=== PATIENT | male | born 1955 | race Caucasian/White ===

== ENCOUNTER → 2023-05-09 06:12 | Day surgery (SDC) | payer MEDICARE, SELFPAY | LOC: GI 06:12 | PROVIDERS: ATTENDING PHYSICIAN Internal Medicine Gastroenterology; FAMILY PHYSICIAN Family Medicine | DX: Z12.11 Encounter for screening for malignant neoplasm of colon (principal); Z86.010 Personal history of colon polyps; K64.8 Other hemorrhoids; K57.30 Diverticulosis of large intestine without perforation or abscess without bleeding | CPT/HCPCS: G0105 ==

== ENCOUNTER → 2023-05-26 07:18 | Outpatient (REF) | payer MEDICARE, SELFPAY ==
[2023-05-26 07:47] LABS: % Basophils 0.4 % (0-2); % Eosinophils 1.7 % (0-6); % Immature Granulocytes 0.4 % (0-0.5); % Lymphocytes 20.3 % (20.5-51.1); % Monocytes 8.4 % (1.7-9.3); % Neutrophils 68.8 % (42.2-75.2); Absolute Eosinophils 0.1 10^3/uL (0-0.7); Absolute Lymphocytes 1.6 10^3/uL (1.2-3.4); Absolute Monocytes 0.7 10^3/uL (0.1-0.6); Absolute Neutrophils 5.6 10^3/uL (1.4-6.5); Hematocrit 45.1 % (39.0-52.0); Hemoglobin 15.5 g/dL (13.0-18.0); Mean Corp Hgb Conc. 34.4 g/dL (33.0-37.0); Mean Corpuscular Hgb 31.4 pg (27.0-31.0); Mean Corpuscular Volume 91.5 fL (80.0-94.0); Mean Platelet Volume 10.5 fL (7.4-10.4); Nucleated Red Blood Cells % 0 % (-); Platelet Count 186 10^3/uL (130-400); Red Blood Cell Count 4.93 10^6/uL (4.70-6.10); Red Cell Dist. Width 13.9 % (11.5-14.5); White Blood Cell Count 8.1 10^3/uL (4.8-10.8)
[2023-05-26 08:24] LABS: Erythrocyte Sed Rate 4 mm/hour (0-20)
[2023-05-26 08:38] LABS: ALT (SGPT) 40 U/L (0-50); AST (SGOT) 38 U/L (17-59); Albumin 4.6 g/dl (3.5-5.0); Alkaline Phosphatase 95 U/L (38-126); Blood Urea Nitrogen 19 mg/dl (9-20); Calcium 9.3 mg/dl (8.4-10.2); Carbon Dioxide 26 mmol/L (22-30); Chloride 106 mmol/L (98-107); Glucose 102 mg/dl (70-99); Potassium 4.2 mmol/L (3.5-5.1); Sodium 138 mmol/L (135-145); Total Bilirubin 1.5 mg/dl (0.2-1.3); Total Protein 7.6 g/dl (6.3-8.2); eGFR > 60.00
== END ==
LOC: REG 07:18
PROVIDERS: ATTENDING PHYSICIAN Internal Medicine Rheumatology; FAMILY PHYSICIAN Family Medicine
DX: M05.79 Rheumatoid arthritis with rheumatoid factor of multiple sites without organ or systems involvement (principal); M81.0 Age-related osteoporosis without current pathological fracture; Z51.81 Encounter for therapeutic drug level monitoring
CPT/HCPCS: 36415; 80053; 85025; 85652; 86140

== ENCOUNTER → 2023-06-02 06:11 | Day surgery (SDC) | payer MEDICARE, SELFPAY | LOC: GI 06:11 | PROVIDERS: ATTENDING PHYSICIAN Internal Medicine Gastroenterology; FAMILY PHYSICIAN Family Medicine | DX: R12 Heartburn (principal); K44.9 Diaphragmatic hernia without obstruction or gangrene; K21.00 Gastro-esophageal reflux disease with esophagitis, without bleeding; K22.89 Other specified disease of esophagus; K31.89 Other diseases of stomach and duodenum | CPT/HCPCS: 43239; 88305; 88342 ==

== ENCOUNTER → 2023-07-31 06:51 | Outpatient (REF) | payer MEDICARE, SELFPAY ==
[2023-07-31 07:49] LABS: % Basophils 0.4 % (0-2); % Eosinophils 1.5 % (0-6); % Immature Granulocytes 0.5 % (0-0.5); % Lymphocytes 14.6 % (20.5-51.1); % Monocytes 6.8 % (1.7-9.3); % Neutrophils 76.2 % (42.2-75.2); Absolute Eosinophils 0.2 10^3/uL (0-0.7); Absolute Immature Granulocytes 0.1 10^3/uL (0-0.05); Absolute Lymphocytes 1.6 10^3/uL (1.2-3.4); Absolute Monocytes 0.8 10^3/uL (0.1-0.6); Absolute Neutrophils 8.4 10^3/uL (1.4-6.5); Hematocrit 46.3 % (39.0-52.0); Hemoglobin 15.7 g/dL (13.0-18.0); Mean Corp Hgb Conc. 33.9 g/dL (33.0-37.0); Mean Corpuscular Hgb 31.2 pg (27.0-31.0); Mean Corpuscular Volume 91.9 fL (80.0-94.0); Mean Platelet Volume 10.4 fL (7.4-10.4); Nucleated Red Blood Cells % 0 % (-); Platelet Count 197 10^3/uL (130-400); Red Blood Cell Count 5.04 10^6/uL (4.70-6.10); Red Cell Dist. Width 13.4 % (11.5-14.5); White Blood Cell Count 11.1 10^3/uL (4.8-10.8)
[2023-07-31 08:33] LABS: ALT (SGPT) 48 U/L (0-50); AST (SGOT) 36 U/L (17-59); Albumin 4.3 g/dl (3.5-5.0); Alkaline Phosphatase 87 U/L (38-126); Blood Urea Nitrogen 20 mg/dl (9-20); Calcium 9.6 mg/dl (8.4-10.2); Carbon Dioxide 27 mmol/L (22-30); Chloride 104 mmol/L (98-107); Glucose 107 mg/dl (70-99); HDL Cholesterol 50 mg/dl; LDL Cholesterol, Calculated 96 mg/dl; Potassium 4.3 mmol/L (3.5-5.1); Sodium 140 mmol/L (135-145); Total Bilirubin 0.6 mg/dl (0.2-1.3); Total Cholesterol 173 mg/dl (50-199); Total Protein 7.5 g/dl (6.3-8.2); Triglyceride 138 mg/dl (10-149); Very Low Density Lipoprotein 27 mg/dl (0-30); eGFR > 60.00
[2023-07-31 08:51] LABS: PSA, Total - Screen 1.87 ng/ml (0.0-4.0)
== END ==
LOC: REG 06:51
PROVIDERS: ATTENDING PHYSICIAN Family Medicine
DX: D72.829 Elevated white blood cell count, unspecified (principal); Z12.5 Encounter for screening for malignant neoplasm of prostate; E78.2 Mixed hyperlipidemia; R73.02 Impaired glucose tolerance (oral)
CPT/HCPCS: 36415; 80053; 80061; 85025; G0103

== ENCOUNTER → 2023-09-25 07:04 | Outpatient (REF) | payer MEDICARE, SELFPAY ==
[2023-09-25 08:15] LABS: % Basophils 0.4 % (0-2); % Eosinophils 1.5 % (0-6); % Immature Granulocytes 0.5 % (0-0.5); % Lymphocytes 15.6 % (20.5-51.1); % Monocytes 10.1 % (1.7-9.3); % Neutrophils 71.9 % (42.2-75.2); Absolute Eosinophils 0.1 10^3/uL (0-0.7); Absolute Immature Granulocytes 0.1 10^3/uL (0-0.05); Absolute Lymphocytes 1.5 10^3/uL (1.2-3.4); Absolute Neutrophils 6.9 10^3/uL (1.4-6.5); Hematocrit 47.1 % (39.0-52.0); Hemoglobin 15.8 g/dL (13.0-18.0); Mean Corp Hgb Conc. 33.5 g/dL (33.0-37.0); Mean Corpuscular Volume 89.5 fL (80.0-94.0); Mean Platelet Volume 10.9 fL (7.4-10.4); Nucleated Red Blood Cells % 0 % (-); Platelet Count 210 10^3/uL (130-400); Red Blood Cell Count 5.26 10^6/uL (4.70-6.10); Red Cell Dist. Width 13.7 % (11.5-14.5); White Blood Cell Count 9.6 10^3/uL (4.8-10.8)
[2023-09-25 09:14] LABS: Free T4 1.08 ng/dl (0.78-2.19)
[2023-09-25 09:28] LABS: TSH 1.48 uIU/ml (0.47-4.68)
== END ==
LOC: REG 07:04
PROVIDERS: ATTENDING PHYSICIAN Family Medicine; FAMILY PHYSICIAN Internal Medicine Rheumatology
DX: D72.829 Elevated white blood cell count, unspecified (principal); R53.83 Other fatigue
CPT/HCPCS: 36415; 84403; 84439; 84443; 85025

== ENCOUNTER → 2023-09-28 16:34 | Outpatient (REF) | payer MEDICARE, SELFPAY ==
[2023-09-28 17:00] LABS: % Basophils 0.5 % (0-2); % Eosinophils 1.3 % (0-6); % Immature Granulocytes 0.4 % (0-0.5); % Lymphocytes 16.8 % (20.5-51.1); % Monocytes 13.8 % (1.7-9.3); % Neutrophils 67.2 % (42.2-75.2); Absolute Eosinophils 0.1 10^3/uL (0-0.7); Absolute Lymphocytes 1.4 10^3/uL (1.2-3.4); Absolute Monocytes 1.2 10^3/uL (0.1-0.6); Absolute Neutrophils 5.7 10^3/uL (1.4-6.5); Hematocrit 44.7 % (39.0-52.0); Hemoglobin 15.4 g/dL (13.0-18.0); Mean Corp Hgb Conc. 34.5 g/dL (33.0-37.0); Mean Corpuscular Volume 90.1 fL (80.0-94.0); Mean Platelet Volume 10.4 fL (7.4-10.4); Nucleated Red Blood Cells % 0 % (-); Platelet Count 230 10^3/uL (130-400); Red Blood Cell Count 4.96 10^6/uL (4.70-6.10); White Blood Cell Count 8.5 10^3/uL (4.8-10.8)
[2023-09-28 17:15] LABS: ALT (SGPT) 45 U/L (0-50); AST (SGOT) 35 U/L (17-59); Albumin 4.3 g/dl (3.5-5.0); Alkaline Phosphatase 75 U/L (38-126); Blood Urea Nitrogen 22 mg/dl (9-20); Calcium 9.3 mg/dl (8.4-10.2); Carbon Dioxide 27 mmol/L (22-30); Chloride 104 mmol/L (98-107); Glucose 95 mg/dl (70-99); Potassium 4.3 mmol/L (3.5-5.1); Sodium 141 mmol/L (135-145); Total Bilirubin 0.7 mg/dl (0.2-1.3); Total Protein 7.3 g/dl (6.3-8.2); eGFR > 60.00
[2023-09-28 17:28] LABS: Erythrocyte Sed Rate 25 mm/hour (0-20)
[2023-09-29 10:58] LABS: Body Fluid Mononuclear 14.1 %; Body Fluid Polymorphonuclear 85.9 %; Body Fluid WBC 23980 /CUMM
[2023-09-29 11:12] LABS: Body Fluid Second Tech CF
== END ==
LOC: REG 16:34
PROVIDERS: ATTENDING PHYSICIAN Physician Assistant Surgical; FAMILY PHYSICIAN Family Medicine; REFERRING PHYSICIAN Internal Medicine Rheumatology
DX: M25.562 Pain in left knee (principal); Z96.652 Presence of left artificial knee joint
CPT/HCPCS: 36415; 80053; 85025; 85652; 86140; 87070; 87075; 87205; 89051; 89060

== ENCOUNTER → 2023-10-02 11:00 | Outpatient (REF) | payer MEDICARE, SELFPAY | LOC: REG 11:00 | PROVIDERS: ATTENDING PHYSICIAN Physician Assistant Surgical; FAMILY PHYSICIAN Family Medicine; REFERRING PHYSICIAN Internal Medicine Rheumatology | DX: M25.462 Effusion, left knee (principal); Z96.652 Presence of left artificial knee joint | CPT/HCPCS: 36415; 86618; 87476 ==

== ENCOUNTER 2023-10-09 09:05 | Inpatient (IN) | payer MEDICARE, SELFPAY ==
[2023-10-05 13:34] VITALS: BMI 27.7
[2023-10-05 13:38] LABS: Hematocrit 45.5 % (39.0-52.0); Hemoglobin 15.5 g/dL (13.0-18.0); Mean Corp Hgb Conc. 34.1 g/dL (33.0-37.0); Mean Corpuscular Hgb 31.1 pg (27.0-31.0); Mean Corpuscular Volume 91.4 fL (80.0-94.0); Platelet Count 235 10^3/uL (130-400); Red Blood Cell Count 4.98 10^6/uL (4.70-6.10); Red Cell Dist. Width 14.6 % (11.5-14.5)
[2023-10-05 14:25] LABS: ALT (SGPT) 62 U/L (0-50); AST (SGOT) 42 U/L (17-59); Albumin 4.5 g/dl (3.5-5.0); Alkaline Phosphatase 82 U/L (38-126); Blood Urea Nitrogen 19 mg/dl (9-20); Calcium 9.5 mg/dl (8.4-10.2); Carbon Dioxide 23 mmol/L (22-30); Chloride 105 mmol/L (98-107); Estimated Creatinine Clearance 86 ml/min; Glucose 95 mg/dl (70-99); Potassium 4.9 mmol/L (3.5-5.1); Sodium 137 mmol/L (135-145); Total Bilirubin 0.7 mg/dl (0.2-1.3); Total Protein 7.4 g/dl (6.3-8.2); eGFR > 60.00
[2023-10-06 10:21] LABS: Glycohemoglobin (HgbA1c) 5.4 % (4.0-5.6)
[2023-10-09] VITALS (10 sets, daily range): BP systolic 94–124; BP diastolic 58–75; BMI 27.7
[2023-10-09] MEDS: NORMOSOL-R 1000 IV ×2 (09:37→17:02)
[2023-10-09] MEDS: CELEBREX 200 MG PO (09:37)
[2023-10-09] MEDS: TYLENOL 650 MG PO ×4 (09:37→23:42)
[2023-10-09] MEDS: ROXICODONE 5 MG PO ×2 (16:21→23:49)
--- NOTE | 2023-10-09 16:56 | PTCARENOTE ---
Patient received from PACU in bed; IVF infusing; Surgical site assessed with COAL HANDLING SUPERVISOR, left knee aquacell with scant amount of drainage; Bilateral pedal pulse +2 to palpation; Patient has decreased sensation to bilateral lower extremities, patient is
able to plantarflex and dorsiflex; Capillary refill to bilateral lower extremities less than three seconds; Patient denies nausea/vomiting; Patient denies pain at this time; Spouse at bedside; Bed in lowest position, wheels locked; Patient and
spouse oriented to room and unit; Call billy within reach; Assessment ongoing
[2023-10-09] MEDS: ASPIRIN 325 MG PO (17:07)
--- NOTE | 2023-10-09 17:28 | CON.ID ---
Consultation
-
Date/Time Consultation Requested: 10/09/2023 1124
Date/Time Consultation Performed: 10/09/2023 1700
Requesting Provider: Dr. Schulte
Performing Provider: Dr. Méndez
Reason for Consultation: Left knee prosthetic joint infection
Chief Complaint / Past History
History of Present Illness
Lio Infante is a 68-year-old male being evaluated at the request of Dr. Schulte in regards to a left knee prosthetic joint infection. History is obtained from chart review, along with patient interview. Additional history was obtained from the
patient's who was at the bedside.
The patient underwent a left total knee replacement approximately 4 years, and reports in the interim he had been doing well. More recently, he notes that he had been doing some carpentry in his basement and also for a family member. Approximate 3
weeks ago he began to develop some tenderness of the left knee which progressed to pain. He had made an appointment with Orthopedics and the knee effusion was tapped, with reportedly negative results. Unfortunately, the knee continues to be
painful, and the patient underwent Synovasure testing and found to be positive, although cultures were negative. He was also found to have an increased CRP. Today he was taken to the OR for explantation of hardware and spacer implantation.
He denies any recent rashes, but does note that he is in the garden. Other than knee swelling and tenderness, he notes no significant erythema of the area.
Past History
Additional Past Medical History:
Rheumatoid arthritis
AAA (being monitored)
HTN
Additional Past Surgical History:
Left knee replacement
Left femur ORIF
Left rotator cuff surgery
Allergy History:
No Known Allergies Allergy (Verified 10/09/23 09:24)
Medications Reviewed: Yes
Current Antibiotics:
Cefazolin intraoperatively
Social History
Tobacco: Non-Smoker
Alcohol: None
Drug: None
Personal:
Living: With Family
Employment: Retired
Family History
Family History: Not Pertinent
Review of Systems
Vital Signs
Temp Pulse Resp BP Pulse Ox
97.7 F 48 18 124/75 98
10/09/23 16:45 10/09/23 16:45 10/09/23 16:45 10/09/23 16:45 10/09/23 16:45
Physical Exam
Physical Exam
Constitutional: No Acute Distress, Comfortable and Non-toxic
Head: Normocephalic
Eyes: Pupils Equal, Pupils Round, No Conjunctival Hemorrhage and Sclera Anicteric
Oral: No Thrush and No Ulcers
Cardiovascular: Regular Rate and S1/S2; Negative S3/S4 or Murmur
Pulmonary: Clear; Negative Wheezes, Rales or Rhonchi
Gastrointestinal: Soft, Non Tender, Non Distended and Normal Bowel Sounds
Extremities: Edema; Negative Cyanosis or Erythema
Musculoskeletal: Other (Left knee with bandage in place)
Skin: Warm and Dry
Neurological: Awake and Alert
Psychological: Calm
Lab / Diagnostic Study Results
10/05/23 12:50
10/05/23 12:50
Microbiology Results
Micro:
10/09/23 13:53 Body Fluid Culture - Pending
Knee - Left Gram Stain - Final
10/09/23 14:06 Wound Culture - Pending
Knee - Left Gram Stain - Pending
10/09/23 14:06 Anaerobic Culture - Pending
Knee - Left
10/09/23 13:53 Wound Culture - Pending
Knee - Left Gram Stain - Pending
10/09/23 13:53 Anaerobic Culture - Pending
Knee - Left
10/05/23 12:50 MRSA Screen - Final
Nose No Methicillin Resistant Staphylococcus aureus isolated.
Assessment / Plan
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
- S/p space placement
Rheumatoid arthritis
AAA (being monitored)
HTN
Recommendations
Intraoperative cultures have been obtained.
Will initiate empiric vancomycin.
Will review outpatient lab work.
Follow white count and temperature curve.
Await further culture data to guide antimicrobial selection and potential de-escalation.
Check ESR and CRP in AM.
Care Review
Plan reviewed with: Physician (Orthopedics)
[2023-10-09] MEDS: VANCOCIN 540 MG IV (17:56)
--- NOTE | 2023-10-09 18:53 | PHA.VAN.IN ---
Assessment
- Assessment
Renal Function: Appears similar to baseline
Concomitant Antimicrobials: ANCEF
- Previous Dosing Experience
Previous Regimen: NONE
AUC Dosing Plan
- Dosing Variables
Dosing Weight (kg): 99.3
Dosing CrCl (ml/min): 86
Vd coefficient (L/kg): 0.7
- Empiric Dosing
Initial / Loading Dose: 2GM
Maintenance Regimen: 1250MG IV Q12H
Estimated AUC (mcg*h/mL): 502
Estimated Peak (mcg*h/mL): 30.1
Estimated Trough (mcg/ml): 13.6
Estimated Half Life (H): 9.1
Pharmacokinetics Vancomycin I
- -
Patient Age: 68
Patient Sex: Male
Vancomycin Day #: 1
Indication: Bone And Joint (SEPTIC PROSETHETIC [L] TKA)
Height / Weight:
Height 6 ft 2.5 in
Actual Weight 99.3 kg
- Vital Signs / Lab Results
Temp Pulse Resp BP Pulse Ox
97.7 F 48 18 124/75 98
10/09/23 16:45 10/09/23 16:45 10/09/23 16:45 10/09/23 16:45 10/09/23 16:45
Microbiology Results
10/09/23 13:53 Gram Stain - Preliminary
Knee - Left
10/09/23 14:06 Gram Stain - Preliminary
Knee - Left
10/09/23 13:53 Gram Stain - Final
Knee - Left
[2023-10-09] MEDS: COLACE 100 MG PO (19:49)
[2023-10-09] MEDS: ANCEF 5 IV (19:49)
[2023-10-09] MEDS: BACTROBAN 2% OINTMENT 1 APPLIC NASAL (19:49)
[2023-10-09] MEDS: TORADOL 10 MG IV (19:50)
[2023-10-09] MEDS: SENOKOT PO (19:50)
[2023-10-09] MEDS: COREG PO (19:50)
[2023-10-09] MEDS: NEURONTIN 300 MG PO (21:05)
[2023-10-10] VITALS (7 sets, daily range): BP systolic 112–148; BP diastolic 67–88; PULSE 55–56; O2SAT 95–96
[2023-10-10] MEDS: ANCEF 5 IV (04:51)
[2023-10-10] MEDS: TYLENOL 650 MG PO ×5 (04:52→20:22)
[2023-10-10] MEDS: VANCOCIN 275 MG IV ×2 (06:00→17:03)
[2023-10-10] MEDS: COLACE 100 MG PO ×2 (08:33→20:23)
[2023-10-10] MEDS: MOBIC 15 MG PO (08:33)
[2023-10-10] MEDS: ASPIRIN 325 MG PO (08:33)
[2023-10-10] MEDS: BACTROBAN 2% OINTMENT 1 APPLIC NASAL ×2 (08:33→20:23)
[2023-10-10] MEDS: CLARITIN 10 MG PO (08:33)
[2023-10-10] MEDS: COREG PO ×2 (08:33→22:02)
[2023-10-10] MEDS: SENOKOT 17.2 MG PO ×2 (08:33→20:23)
[2023-10-10] MEDS: DELTASONE 5 MG PO (08:33)
[2023-10-10] MEDS: MAG-TAB SR 84 MG PO (08:33)
[2023-10-10] MEDS: TORADOL 10 MG IV ×2 (08:34→20:22)
[2023-10-10] MEDS: ROXICODONE 5 MG PO ×3 (08:40→22:23)
--- NOTE | 2023-10-10 09:27 | PHA.VAN.FU ---
Addendum entered and electronically signed by Jackie Young [facility] 10/10/23 15:58:
BUN & SCR ordered per protocol
Original Note:
Vancomycin Assessment / Plan
- Assessment
Renal Function: No New Labs Today
- Dosing Plan
Continue: Vanc 1250mg Q12H
- Monitoring Plan
No level(s) ordered at this time: consider levels in next few days
- Follow Up
Pharmacy will continue to follow.
Vancomycin Follow UP
- -
Patient Age: 68
Patient Sex: Male
Vancomycin Day #: 2
Indication: Bone And Joint
Requesting Provider: Dr. Méndez
Pertinent Antimicrobial Allergies:
NKDA
Height / Weight:
Height 6 ft 2.5 in
Actual Weight 99.3 kg
Pertinent Past Medical History: L. TKA (4y ago)
- Vital Signs / Lab Results
Temp Pulse Resp BP Pulse Ox
97.6 F 53 17 112/72 96
10/10/23 07:11 10/10/23 07:11 10/10/23 07:11 10/10/23 08:33 10/10/23 07:11
Microbiology Results
10/09/23 14:06 Anaerobic Culture - Preliminary
Knee - Left Culture pending. Anaerobic cultures are examined after 3
days incubation. Additional information to follow.
10/09/23 14:06 Wound Culture - Preliminary
Knee - Left No growth
Gram Stain - Preliminary
10/09/23 13:53 Anaerobic Culture - Preliminary
Knee - Left Culture pending. Anaerobic cultures are examined after 3
days incubation. Additional information to follow.
10/09/23 13:53 Wound Culture - Preliminary
Knee - Left No growth
Gram Stain - Preliminary
10/09/23 13:53 Gram Stain - Final
Knee - Left
--- NOTE | 2023-10-10 10:01 | W.PN.ORTHO ---
Today's Communication / Plan
-
d/c when stable and cultures resulted
Assessment
.
Distal Motor Intact: Yes
Dressing:
Clean, dry and intact.
Assessment:
Septic Prosthetic L TKA
Plan
.
Surgery / Date: L TKA Revision Stage 1-CBB 10/09/23
DVT Prophylaxis: Aspirin
Activity:
Out of bed.
PT/OT
Discharge Plan: Home w/ VN
Subjective
.
.:
Patient resting comfortably.
Vital Signs and Labs
.
Vital Signs and Labs:
Lab Results
10/05/23 12:50
10/05/23 12:50
Temp Pulse Resp BP Pulse Ox
97.6 F 53 17 112/72 96
10/10/23 07:11 10/10/23 07:11 10/10/23 07:11 10/10/23 08:33 10/10/23 08:00
Non-invasive Hgb result: 16.1
Physical Exam
-
HEENT: No pallor, cyanosis, or jaundice. Throat clear.
NECK: Supple. No JVD.
RESPIRATORY: Lungs clear to auscultation.
CVS: S1, S2 normal. RRR.� No murmur, rub or gallop.
ABDOMEN: Soft, non-tender. No distension. BS+/normal.
EXTREMITIES: strength equal, no calf pain with palpation
PSYCHOLOGIST PERSONNEL: AOx3. No focal deficits. health safety coordinator grossly intact
--- NOTE | 2023-10-10 14:59 | W.PN.ID1 ---
Date of Service
Date of Service: October 10, 2023
Today's Communication
Continue with vancomycin.
Assessment / Plan
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
- S/p spacer placement
Rheumatoid arthritis
AAA (being monitored)
HTN
Recommendations
Intraoperative cultures have been obtained.
Continue empiric vancomycin.
Will review outpatient lab work.
Follow white count and temperature curve.
Await further culture data to guide antimicrobial selection and potential de-escalation.
����������������������������������������������������������
Chief Complaint
-: Other (Left knee PJI)
Subjective / Review of Systems
Review of Systems: No Fever and No Chills
Vital Signs / Physical Exam
Vital Signs
Vital Signs
Temp Pulse Resp BP Pulse Ox
98.9 F 100 17 148/88 92
10/10/23 12:07 10/10/23 12:07 10/10/23 12:07 10/10/23 12:07 10/10/23 12:07
Physical Exam
Constitutional: No Acute Distress and Comfortable
Eyes: Sclera Anicteric
Cardiovascular: S1/S2; Negative S3/S4
Pulmonary: Non Labored
Gastrointestinal: Soft and Non Tender
Musculoskeletal: Other (Left knee dressing in place.)
Neurological: Awake and Alert
Psychological: Calm
Objective Data
Lab Data
Lab Results
10/05/23 12:50
10/05/23 12:50
Estimated Creat Clear 86 ml/min 10/05/23 12:50
Total Bilirubin 0.7 mg/dl (0.2-1.3) 10/05/23 12:50
AST 42 U/L (17-59) 10/05/23 12:50
ALT 62 U/L (0-50) H 10/05/23 12:50
Alkaline Phosphatase 82 U/L (38-126) 10/05/23 12:50
Most recent labs reviewed.
Micro Results:
10/09/23 14:06 Anaerobic Culture - Preliminary
Knee - Left Culture pending. Anaerobic cultures are examined after 3
days incubation. Additional information to follow.
10/09/23 14:06 Wound Culture - Preliminary
Knee - Left No growth
Gram Stain - Preliminary
10/09/23 13:53 Anaerobic Culture - Preliminary
Knee - Left Culture pending. Anaerobic cultures are examined after 3
days incubation. Additional information to follow.
10/09/23 13:53 Wound Culture - Preliminary
Knee - Left No growth
Gram Stain - Preliminary
10/09/23 13:53 Body Fluid Culture - Pending
Knee - Left Gram Stain - Final
10/05/23 12:50 MRSA Screen - Final
Nose No Methicillin Resistant Staphylococcus aureus isolated.
--- NOTE | 2023-10-10 15:55 | CM ---
CM met with pt and spouse bedside
They reside in a 2SH with 3 DENY, 1st floor set up in preparation for surgery
Pt typically independent at home, no ADs
He has a WW for use as needed
PCP- Tye Franz
Rx- [facility] [address] [address]
Bedside meeting with Dr Schulte
POD#1 L TKA revision
Pt will require 6 weeks IV abx- awaiting ID's final abx plan and script
PT/OT following with VN recommendations
Provider choices discussed
Referral to be sent to [facility] for coverage and pricing once script received
Referral to [facility] for SN/PT/OT and picc care
Plan for picc placement tomorrow
is requesting abx bedside teaching along with a few other family members that will be assisting
CM to coordinate teaching
Pt has Part D [employer] ID# [id number]
Copy of Part D made
Discharge Disposition - home with VN and IV abx
[2023-10-10] MEDS: NEURONTIN 300 MG PO (22:23)
[2023-10-11] MEDS: TYLENOL PO (00:34)
[2023-10-11] MEDS: TYLENOL 650 MG PO ×5 (03:22→21:03)
[2023-10-11] MEDS: VANCOCIN 275 MG IV ×2 (05:54→17:14)
[2023-10-11 07:20] VITALS: BP 121/84
[2023-10-11 07:22] LABS: Blood Urea Nitrogen 15 mg/dl (9-20); Estimated Creatinine Clearance 95 ml/min
[2023-10-11] MEDS: COREG PO (07:42)
[2023-10-11] MEDS: MOBIC 15 MG PO (07:42)
[2023-10-11] MEDS: SENOKOT 17.2 MG PO ×2 (07:42→21:03)
[2023-10-11] MEDS: DELTASONE 5 MG PO (07:42)
[2023-10-11] MEDS: COLACE 100 MG PO ×2 (07:42→21:05)
[2023-10-11] MEDS: MAG-TAB SR 84 MG PO (07:42)
[2023-10-11] MEDS: CLARITIN 10 MG PO (07:42)
[2023-10-11] MEDS: ASPIRIN 325 MG PO (07:42)
--- NOTE | 2023-10-11 09:21 | PHA.VAN.FU ---
Vancomycin Assessment / Plan
- Assessment
Renal Function: Stable
- Dosing Plan
Continue: Vanc 1250mg Q12H
- Monitoring Plan
Peak Level: 10/10 21:00
Trough Level: 10/11 05:30
Monitoring Comments: levels to be drawn after 4th maintenance dose
SCR and BUN ordered to be drawn in AM with trough
- Follow Up
Pharmacy will continue to follow.
Vancomycin Follow UP
- -
Patient Age: 68
Patient Sex: Male
Vancomycin Day #: 3
Indication: Bone And Joint
Requesting Provider: Dr. Méndez
Pertinent Antimicrobial Allergies:
NKDA
Height / Weight:
Height 6 ft 2.5 in
Actual Weight 99.3 kg
Pertinent Past Medical History: L. TKA (4y ago)
- Vital Signs / Lab Results
Temp Pulse Resp BP Pulse Ox
97.7 F 60 16 121/84 97
10/11/23 07:20 10/11/23 07:43 10/11/23 07:20 10/11/23 07:43 10/11/23 08:00
Lab Results - Chemistry
10/11/23
05:57
BUN 15
Creatinine 0.9
Estimated Creat Clear 95
Microbiology Results
10/09/23 14:06 Anaerobic Culture - Preliminary
Knee - Left Culture pending. Anaerobic cultures are examined after 3
days incubation. Additional information to follow.
10/09/23 14:06 Wound Culture - Preliminary
Knee - Left No growth
Gram Stain - Preliminary
10/09/23 13:53 Anaerobic Culture - Preliminary
Knee - Left Culture pending. Anaerobic cultures are examined after 3
days incubation. Additional information to follow.
10/09/23 13:53 Wound Culture - Preliminary
Knee - Left No growth
Gram Stain - Preliminary
10/09/23 13:53 Gram Stain - Final
Knee - Left
--- NOTE | 2023-10-11 10:54 | W.PN.ID1 ---
Date of Service
Date of Service: October 11, 2023
Today's Communication
Continue abx. See below.
Assessment / Plan
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
- S/p explantation and spacer placement
Rheumatoid arthritis
AAA (being monitored)
HTN
Recommendations
Intraoperative cultures pending but NGTD.
Continue vancomycin.
Follow white count and temperature curve.
Will plan on a 6 week course of vanco. Home infusion sheet placed on paper chart.
Will follow up in office in 2-3 weeks.
PICC line ordered.
����������������������������������������������������������
Chief Complaint
-: Other (Left knee PJI)
Subjective / Review of Systems
Patient seen and examined. Reports no specific plans at present.
Vital Signs / Physical Exam
Vital Signs
Vital Signs
Temp Pulse Resp BP Pulse Ox
97.7 F 60 16 121/84 97
10/11/23 07:20 10/11/23 07:43 10/11/23 07:20 10/11/23 07:43 10/11/23 08:00
Physical Exam
Constitutional: No Acute Distress, Comfortable and Non-toxic
Eyes: Sclera Anicteric
Cardiovascular: S1/S2; Negative S3/S4
Pulmonary: Non Labored
Gastrointestinal: Soft and Non Tender
Musculoskeletal: Other (Left knee dressing in place. Minimal strikethrough on dressing.)
Neurological: Awake and Alert
Psychological: Calm
Objective Data
Lab Data
Lab Results
10/05/23 12:50
10/11/23 05:57
Estimated Creat Clear 95 ml/min 10/11/23 05:57
Total Bilirubin 0.7 mg/dl (0.2-1.3) 10/05/23 12:50
AST 42 U/L (17-59) 10/05/23 12:50
ALT 62 U/L (0-50) H 10/05/23 12:50
Alkaline Phosphatase 82 U/L (38-126) 10/05/23 12:50
Most recent labs reviewed.
Micro Results:
10/09/23 14:06 Anaerobic Culture - Preliminary
Knee - Left Culture pending. Anaerobic cultures are examined after 3
days incubation. Additional information to follow.
10/09/23 14:06 Wound Culture - Preliminary
Knee - Left No growth
Gram Stain - Preliminary
10/09/23 13:53 Anaerobic Culture - Preliminary
Knee - Left Culture pending. Anaerobic cultures are examined after 3
days incubation. Additional information to follow.
10/09/23 13:53 Wound Culture - Preliminary
Knee - Left No growth
Gram Stain - Preliminary
10/09/23 13:53 Body Fluid Culture - Pending
Knee - Left Gram Stain - Final
10/05/23 12:50 MRSA Screen - Final
Nose No Methicillin Resistant Staphylococcus aureus isolated.
[2023-10-11] MEDS: ROXICODONE 2.5 MG PO (11:35)
[2023-10-11 12:30] VITALS: BP 143/84; PULSE 61; O2SAT 95
--- NOTE | 2023-10-11 13:11 | W.PN.ORTHO ---
Documented by User: Marybeth Santana PA-C 10/11/23 13:13
Today's Communication / Plan
-
d/c when stable and culture resulted
Assessment
.
Distal Motor Intact: Yes
Dressing:
Clean, dry and intact.
Assessment:
Septic Prosthetic L TKA
-immobilizer ordered ADVISED
Plan
.
Surgery / Date: L TKA Revision Stage 1-CBB 10/09/23
DVT Prophylaxis: Aspirin
Activity:
Out of bed.
PT/OT
Discharge Plan: Home w/ VN
Subjective
.
.:
Patient resting comfortably.
Vital Signs and Labs
.
Vital Signs and Labs:
Lab Results
10/05/23 12:50
10/11/23 05:57
Temp Pulse Resp BP Pulse Ox
97.7 F 60 16 121/84 97
10/11/23 07:20 10/11/23 07:43 10/11/23 07:20 10/11/23 07:43 10/11/23 08:00
Non-invasive Hgb result: 13.5
Physical Exam
-
HEENT: No pallor, cyanosis, or jaundice. Throat clear.
NECK: Supple. No JVD.
RESPIRATORY: Lungs clear to auscultation.
CVS: S1, S2 normal. RRR.� No murmur, rub or gallop.
ABDOMEN: Soft, non-tender. No distension. BS+/normal.
EXTREMITIES: strength equal, no calf pain with palpation
TELEVISION PICTURE TUBE REBUILDER: AOx3. No focal deficits. wood finisher grossly intact

Documented by User: Dre Schulte MD 10/11/23 18:19
Today's Communication / Plan
-
Cultures still without growth to date.
Case discussed with Dr. Mark Méndez in detail.
Plan is for 6 weeks of IV antibiotics.
Patient will receive intravenous vancomycin under the direction of Dr. Méndez, unless cultures show growth of organism at which point antibiotics will be chosen based upon sensitivities.
Patient to receive PICC line.
Home infusion being set up by case management.
Tentative discharge for .
Patient to follow-up with Dr. Schulte 2 weeks after discharge.
CBC, ESR, and CRP to be drawn prior to that visit and every 2 weeks postoperatively.
[2023-10-11 15:07] VITALS: BP 121/89
[2023-10-11] MEDS: MILK OF MAGNESIA 30 ML PO (15:44)
--- NOTE | 2023-10-11 16:42 | CM ---
Intraoperative cultures pending. Discharge Plan of Care: Home with total of 6 weeks of IV Vanco. Home infusion referral and pertinent documentation forwarded to [facility]. [facility] will [facility] nursing [facility]. Liaison's of [facility] and
[facility] notified. [facility] will provide teaching to patient and .
--- NOTE | 2023-10-11 16:44 | VATNOTE ---
Chest x-ray post-PICC placement shows PICC tip in the SVC. OK to use, same communicated with PCN.
[2023-10-11] MEDS: COREG 12.5 MG PO (21:05)
[2023-10-11] MEDS: ROXICODONE 5 MG PO (21:08)
[2023-10-11 21:10] LABS: Vancomycin Peak 20.7 ug/ml (18-26)
[2023-10-11] MEDS: NEURONTIN 300 MG PO (21:10)
[2023-10-11 23:05] VITALS: BP 121/77
[2023-10-12] MEDS: TYLENOL PO (00:42)
[2023-10-12] MEDS: TYLENOL 650 MG PO ×5 (03:15→21:02)
[2023-10-12 05:52] LABS: Blood Urea Nitrogen 14 mg/dl (9-20); Estimated Creatinine Clearance 107 ml/min
[2023-10-12] MEDS: VANCOCIN 275 MG IV ×2 (05:53→18:09)
[2023-10-12 05:54] LABS: Vancomycin Trough 11.2 ug/ml (5-20)
[2023-10-12 07:25] VITALS: BP 128/80
--- NOTE | 2023-10-12 08:04 | PHA.VAN.FU ---
Vancomycin Assessment / Plan
- Assessment
Renal Function: Stable
- Assessment - Therapeutic Drug Monitoring
Extrapolated Cmax (mcg/mL): 23.9
Peak level was drawn: Appropriately (drawn ~2H after end of previous infusion)
Extrapolated Cmin (mcg/mL): 11.4
Trough Drawn: Appropriately
Levels were drawn: At steady state (drawn after 4th maintenance dose)
Calculated AUC (mcg*h/mL): 407
Calculated ke: 0.0709
Calculated half life (H): 9.8
Calculated Vd (L): 86.6 (~0.87 L/kg)
Calculated Vanc CL (ml/min): 102
- Dosing Plan
Continue: Vanc 1250mg Q12H
- Monitoring Plan
Level(s) appropriate: Recheck trough at minimum of weekly intervals, Repeat sooner for changes in renal function or clinical status
Next Level Due (Date): ~10/18, may consider sooner
- Follow Up
Pharmacy will continue to follow.
Vancomycin Follow UP
- -
Patient Age: 68
Patient Sex: Male
Vancomycin Day #: 4
Indication: Bone And Joint
Requesting Provider: Dr. Méndez
Pertinent Antimicrobial Allergies:
NKDA
Height / Weight:
Height 6 ft 2.5 in
Actual Weight 99.3 kg
Pertinent Past Medical History: L. TKA (4y ago)
- Vital Signs / Lab Results
Temp Pulse Resp BP Pulse Ox
97.7 F 56 18 128/80 99
10/12/23 07:25 10/12/23 07:25 10/12/23 07:25 10/12/23 07:25 10/12/23 07:25
Lab Results - Chemistry
10/11/23 10/12/23
05:57 05:26
BUN 15 14
Creatinine 0.9 0.8
Estimated Creat Clear 95 107
Microbiology Results
10/09/23 13:53 Body Fluid Culture - Preliminary
Knee - Left No Growth After 48 Hours
Gram Stain - Final
10/09/23 13:53 Wound Culture - Preliminary
Knee - Left No growth
Gram Stain - Preliminary
10/09/23 14:06 Wound Culture - Preliminary
Knee - Left No growth
Gram Stain - Preliminary
10/09/23 14:06 Anaerobic Culture - Preliminary
Knee - Left Culture pending. Anaerobic cultures are examined after 3
days incubation. Additional information to follow.
10/09/23 13:53 Anaerobic Culture - Preliminary
Knee - Left Culture pending. Anaerobic cultures are examined after 3
days incubation. Additional information to follow.
Therapeutic Drug Monitoring
Vancomycin Peak 20.7 ug/ml (18-26) 10/11/23 20:46
Vancomycin Trough 11.2 ug/ml (5-20) 10/12/23 05:26
[2023-10-12] MEDS: COREG PO (08:17)
[2023-10-12] MEDS: CLARITIN 10 MG PO (08:42)
[2023-10-12] MEDS: ASPIRIN 325 MG PO (08:42)
[2023-10-12] MEDS: COLACE 100 MG PO (08:42)
[2023-10-12] MEDS: DELTASONE 5 MG PO (08:42)
[2023-10-12] MEDS: MOBIC 15 MG PO (08:43)
[2023-10-12] MEDS: MAG-TAB SR 84 MG PO (08:43)
[2023-10-12] MEDS: SENOKOT 17.2 MG PO (08:44)
--- NOTE | 2023-10-12 13:08 | W.PN.ORTHO ---
Today's Communication / Plan
-
d/c in am if stable
Assessment
.
Distal Motor Intact: Yes
Dressing:
Clean, dry and intact.
Assessment:
Septic prosthetic joint
-immobilizer
-cultures still without growth to date.
-6 weeks of IV antibiotics.
-IV Vancomycin under the direction of Dr. Méndez-empiric tx pending final culture result/sensitivity.
-CBC w/ diff, ESR, CRP 2 weeks pre-visit
-
Plan
.
Surgery / Date: L TKA Revision Stage 1-CBB 10/09/23
DVT Prophylaxis: Aspirin
Activity:
Out of bed.
PT/OT
Discharge Plan: Home w/ VN
Subjective
.
.:
Patient resting comfortably.
Vital Signs and Labs
.
Vital Signs and Labs:
Lab Results
10/05/23 12:50
10/12/23 05:26
Temp Pulse Resp BP Pulse Ox
97.7 F 56 18 128/77 99
10/12/23 07:25 10/12/23 08:17 10/12/23 07:25 10/12/23 08:17 10/12/23 08:30
Non-invasive Hgb result: 13.5
Physical Exam
-
HEENT: No pallor, cyanosis, or jaundice. Throat clear.
NECK: Supple. No JVD.
RESPIRATORY: Lungs clear to auscultation.
CVS: S1, S2 normal. RRR.� No murmur, rub or gallop.
ABDOMEN: Soft, non-tender. No distension. BS+/normal.
EXTREMITIES: strength equal, no calf pain with palpation
PROCEDURE RN: AOx3. No focal deficits. full service vending driver grossly intact
--- NOTE | 2023-10-12 13:10 | W.PN.ID1 ---
Date of Service
Date of Service: October 12, 2023
Today's Communication
Continue abx
Assessment / Plan
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
- S/p explantation and spacer placement
Rheumatoid arthritis
AAA (being monitored)
HTN
Recommendations
Intraoperative cultures NGTD.
Continue vancomycin.
Follow white count and temperature curve.
Continue 6 week course of vanco. Home infusion sheet placed on paper chart.
Will follow up in office in 2-[address] line [address]
Following weekly labs.
����������������������������������������������������������
Chief Complaint
-: Other (Left knee PJI)
Subjective / Review of Systems
Review of Systems: No Fever and No Chills
Vital Signs / Physical Exam
Vital Signs
Vital Signs
Temp Pulse Resp BP Pulse Ox
97.7 F 56 18 128/77 99
10/12/23 07:25 10/12/23 08:17 10/12/23 07:25 10/12/23 08:17 10/12/23 08:30
Physical Exam
Constitutional: No Acute Distress, Comfortable and Non-toxic
Eyes: Sclera Anicteric
Pulmonary: Non Labored
Gastrointestinal: Soft and Non Distended
Extremities: Edema (trace); Negative Erythema
Musculoskeletal: Other (Left knee dressing in place. Minimal strikethrough on dressing.)
Neurological: Awake, Alert and Oriented
Psychological: Calm
Lines: PICC (RUE)
Objective Data
Lab Data
Lab Results
10/05/23 12:50
10/12/23 05:26
Estimated Creat Clear 107 ml/min 10/12/23 05:26
Total Bilirubin 0.7 mg/dl (0.2-1.3) 10/05/23 12:50
AST 42 U/L (17-59) 10/05/23 12:50
ALT 62 U/L (0-50) H 10/05/23 12:50
Alkaline Phosphatase 82 U/L (38-126) 10/05/23 12:50
Most recent labs reviewed.
Micro Results:
10/09/23 13:53 Wound Culture - Preliminary
Knee - Left No growth
Gram Stain - Preliminary
10/09/23 14:06 Wound Culture - Preliminary
Knee - Left No growth
Gram Stain - Preliminary
10/09/23 13:53 Body Fluid Culture - Preliminary
Knee - Left No Growth After 72 Hours
Gram Stain - Final
10/09/23 14:06 Anaerobic Culture - Preliminary
Knee - Left Culture pending. Anaerobic cultures are examined after 3
days incubation. Additional information to follow.
10/09/23 13:53 Anaerobic Culture - Preliminary
Knee - Left Culture pending. Anaerobic cultures are examined after 3
days incubation. Additional information to follow.
10/05/23 12:50 MRSA Screen - Final
Nose No Methicillin Resistant Staphylococcus aureus isolated.
--- NOTE | 2023-10-12 13:34 | W.DS.TRANS ---
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
-
Discharge Instructions:
Sleep Apnea Risk Intermediate
Discharge Diagnosis/Procedures L TKA Stage 1 Dr. Schulte 10/09/23
Diet As tolerated
Activity With Walker,Other activity
Additional Activity Immobilizer as needed instability/discomfort
Driving Restrictions No driving
Bathing Restrictions OK to Shower
Blood Work ESR, CRP, CBC w/ diff Q2 weeks-at least 3 days
prior to ID office visit-results to Dr. Flores
Dev and Dr. Dre Schulte
Other Services VN,PT
Instructions:
Stand-Alone Forms:
Changes to Home Medications: Yes
Discharge Medications:
DC Medications w/original date entered in [employer]
spironolactone 50 mg tablet 50 mg PO BID Fluid Retention/Swelling 01/13/17
amlodipine 2.5 mg tablet 5 mg PO DAILY Blood Pressure 02/11/22
prednisone 5 mg PO DAILY 02/11/22
Tumeric 1,500 mg PO DAILY 10/06/23
carvedilol 12.5 mg tablet 12.5 mg PO BID Blood Pressure 10/06/23
etanercept 50 mg/mL (1 mL) subcutaneous syringe (Enbrel) 50 mg SC QWEEK 10/06/23
loratadine 10 mg tablet 10 mg PO DAILY 10/06/23
magnesium 200 mg tablet 240 mg PO DAILY 10/06/23
mupirocin 2 % topical ointment 1 applic topical BID 10/06/23
vitamin B complex 1 cap PO DAILY Supplement 10/06/23
Saccharomyces boulardii 250 mg capsule (Florastor) 250 mg PO BID #1 cap 10/12/23
Vancomycin [Vancocin] 1,250 mg 183.33 mls/hr IV Q12H 10/12/23
acetaminophen 325 mg capsule (Tylenol) 650 mg (2 x 325 mg) PO QID #2 caps 10/12/23
aspirin 325 mg tablet 325 mg PO DAILY blood clot prevention #1 tab 10/12/23
celecoxib 200 mg capsule 200 mg PO DAILY anti-inflammatory #14 caps 10/12/23
docusate sodium 100 mg capsule (Colace) 100 mg PO BID stool softner #1 cap 10/12/23
gabapentin 300 mg capsule 300 mg PO HS sleep/pain #10 caps 10/12/23
magnesium hydroxide 400 mg/5 mL oral suspension (Milk of Magnesia) 30 ml PO HS PRN Constipation #1 mL 10/12/23
oxycodone 5 mg tablet 5 mg PO Q6H PRN 1 tab moderate pain, 2 tabs severe pain #30 tabs 10/12/23
sennosides 8.6 mg tablet (Senokot) 17.2 mg (2 x 8.6 mg) PO BID laxative #2 tabs 10/12/23
Home Medication Changes
Vancomycin [Vancocin] 1,250 mg 183.33 mls/hr IV Q12H 10/12/23�
celecoxib 200 mg capsule 200 mg PO DAILY anti-inflammatory #14 caps 10/12/23�
gabapentin 300 mg capsule 300 mg PO HS sleep/pain #10 caps 10/12/23�
oxycodone 5 mg tablet 5 mg PO Q6H PRN 1 tab moderate pain, 2 tabs severe pain #30 tabs 10/12/23�
Pending Results: Yes
Additional Pending Results:
intraoperative cultures
--- NOTE | 2023-10-12 13:57 | CM ---
Addendum entered by Marybel Quiles RN 10/12/23 15:06:
IMM signed and placed on chart.
Original Note:
Reviewed the chart notes and spoke with the patient and his spouse at the bedside. [facility] phone number provided. Plan is for discharge tomorrow with IV abx through [facility] and [facility]. Per [facility] Liaison the copay costs for
the medication will be $180.00/week and for the supplies it will be $120.00. Patient and spouse in agreement with cost. Zahida informed of discharge tomorrow. CM continues to be available to patient/family and is monitoring medical plan for needs
at discharge.
Plan: Discharge to home tomorrow on IV abx through [facility] and [facility].
[2023-10-12 15:15] VITALS: BP 115/84
[2023-10-12] MEDS: FLUSH (NSS) 1 FLUSH IV (18:09)
[2023-10-12] MEDS: COREG 12.5 MG PO (20:55)
[2023-10-12] MEDS: COLACE PO (21:01)
[2023-10-12] MEDS: SENOKOT PO (21:02)
[2023-10-12] MEDS: NEURONTIN 300 MG PO (21:03)
[2023-10-12] MEDS: ROXICODONE 5 MG PO (22:11)
[2023-10-12 23:51] VITALS: BP 116/72
[2023-10-13] MEDS: TYLENOL PO (00:33)
[2023-10-13] MEDS: TYLENOL 650 MG PO ×3 (04:51→11:57)
[2023-10-13] MEDS: VANCOCIN 275 MG IV (06:11)
[2023-10-13 07:18] VITALS: BP 144/78
[2023-10-13] MEDS: SENOKOT PO (08:15)
[2023-10-13] MEDS: COLACE PO (08:15)
[2023-10-13] MEDS: COREG PO (08:15)
[2023-10-13] MEDS: ASPIRIN 325 MG PO (08:16)
[2023-10-13] MEDS: CLARITIN 10 MG PO (08:17)
[2023-10-13] MEDS: DELTASONE 5 MG PO (08:17)
[2023-10-13] MEDS: MAG-TAB SR 84 MG PO (08:17)
[2023-10-13] MEDS: MOBIC 15 MG PO (08:17)
--- NOTE | 2023-10-13 10:23 | W.PN.ID1 ---
Date of Service
Date of Service: October 13, 2023
Today's Communication
Continue antibiotics.
Assessment / Plan
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
- S/p explantation and spacer placement
Rheumatoid arthritis
AAA (being monitored)
HTN
Recommendations
Intraoperative cultures - NGTD. Holding synovial fluid for extended incubation.
Continue 6 week course of vanco. Home infusion sheet placed on paper chart.
Will follow up in office in 2-3 weeks.
PICC line placed.
Following weekly labs.
����������������������������������������������������������
Chief Complaint
-: Other (Left knee PJI)
Subjective / Review of Systems
Review of Systems: No Fever and No Chills
Vital Signs / Physical Exam
Vital Signs
Vital Signs
Temp Pulse Resp BP Pulse Ox
97.7 F 50 16 144/78 97
10/13/23 07:18 10/13/23 08:15 10/13/23 07:18 10/13/23 08:15 10/13/23 07:18
Physical Exam
Constitutional: No Acute Distress, Comfortable and Non-toxic
Pulmonary: Non Labored
Gastrointestinal: Soft and Non Distended
Extremities: Edema (trace); Negative Erythema
Musculoskeletal: Joint Swelling (left knee) and Other (Left knee dressing in place. Minimal strikethrough on dressing.)
Neurological: Awake, Alert and Oriented
Psychological: Calm
Lines: PICC (RUE)
Objective Data
Lab Data
Lab Results
10/05/23 12:50
10/12/23 05:26
Estimated Creat Clear 107 ml/min 10/12/23 05:26
Total Bilirubin 0.7 mg/dl (0.2-1.3) 10/05/23 12:50
AST 42 U/L (17-59) 10/05/23 12:50
ALT 62 U/L (0-50) H 10/05/23 12:50
Alkaline Phosphatase 82 U/L (38-126) 10/05/23 12:50
Most recent labs reviewed.
Micro Results:
10/09/23 13:53 Anaerobic Culture - Preliminary
Knee - Left NO ANAEROBES ISOLATED
10/09/23 14:06 Anaerobic Culture - Preliminary
Knee - Left NO ANAEROBES ISOLATED
10/09/23 13:53 Wound Culture - Preliminary
Knee - Left No growth
Gram Stain - Preliminary
10/09/23 14:06 Wound Culture - Preliminary
Knee - Left No growth
Gram Stain - Preliminary
10/09/23 13:53 Body Fluid Culture - Preliminary
Knee - Left No Growth After 72 Hours
Gram Stain - Final
10/05/23 12:50 MRSA Screen - Final
Nose No Methicillin Resistant Staphylococcus aureus isolated.
--- NOTE | 2023-10-13 10:27 | PTCARENOTE ---
0942: Marybeth STARKEY made aware that medial and lateral part of L knee warm to touch. Patient does not have pain to L calf, warmth or redness. No new orders at this time. L dorsal pedis pulse is normal. Care ongoing.
--- NOTE | 2023-10-13 11:35 | W.PN.ORTHO ---
Today's Communication / Plan
-
d/c
Assessment
.
Distal Motor Intact: Yes
Dressing:
Clean, dry and intact.
Assessment:
Septic prosthetic joint
-immobilizer
-cultures still without growth to date.
-6 weeks of IV antibiotics.
-IV Vancomycin under the direction of Dr. Méndez-empiric tx pending final culture result/sensitivity.
-CBC w/ diff, ESR, CRP weekly per ID- pre-visit
-
Plan
.
Surgery / Date: L TKA Revision Stage 1-CBB 10/09/23
DVT Prophylaxis: Aspirin
Activity:
Out of bed.
PT/OT
Discharge Plan: Home w/ VN
Subjective
.
.:
Patient resting comfortably.
Vital Signs and Labs
.
Vital Signs and Labs:
Lab Results
10/05/23 12:50
10/12/23 05:26
Temp Pulse Resp BP Pulse Ox
97.7 F 50 16 144/78 97
10/13/23 07:18 10/13/23 08:15 10/13/23 07:18 10/13/23 08:15 10/13/23 07:18
Non-invasive Hgb result: 13.5
Physical Exam
-
HEENT: No pallor, cyanosis, or jaundice. Throat clear.
NECK: Supple. No JVD.
RESPIRATORY: Lungs clear to auscultation.
CVS: S1, S2 normal. RRR.� No murmur, rub or gallop.
ABDOMEN: Soft, non-tender. No distension. BS+/normal.
EXTREMITIES: strength equal, no calf pain with palpation-able to plantar and dorsiflex
SUPERVISOR INCISING: AOx3. No focal deficits. cop examiner grossly intact
--- NOTE | 2023-10-13 11:39 | CM ---
Addendum entered by Ramona Woods 10/13/23 13:27:
Met with patient and family at bedside
IMM benefit explained; form signed @ 1325
Transportation: family will provide ride home
Original Note:
Corry from [facility] called; she reported that she will meet with patient this afternoon between 1-1:30 PM for education; [facility] will see patient in their home tomorrow
Labs and Medications faxed to [facility] @ #[phone] as requested
Plan: Discharge to Home today with [facility] and [facility], [facility] Office
FAX # [phone]
[2023-10-13 14:50] VITALS: BP 140/87
== END 2023-10-13 15:21 | disposition home health service (06) | DRG 467 ==
LOC: 2 SOUTH 09:05
PROVIDERS: ADMITTING PHYSICIAN Specialist; CONSULT PHYSICIAN Internal Medicine Infectious Disease; FAMILY PHYSICIAN Family Medicine
PROC: 0SRD0EZ Replacement of Left Knee Joint with Articulating Spacer, Open Approach (ICD-10-PCS; 2023-10-09)
PROC: 0SPD0JZ Removal of Synthetic Substitute from Left Knee Joint, Open Approach (ICD-10-PCS; 2023-10-09)
DX: T84.54XA Infection and inflammatory reaction due to internal left knee prosthesis, initial encounter (principal); D84.821 Immunodeficiency due to drugs; L03.90 Cellulitis, unspecified; M00.9 Pyogenic arthritis, unspecified; Y83.1 Surgical operation with implant of artificial internal device as the cause of abnormal reaction of the patient, or of later complication, without mention of misadventure at the time of the procedure; I10 Essential (primary) hypertension; M06.9 Rheumatoid arthritis, unspecified; I71.40 Abdominal aortic aneurysm, without rupture, unspecified; Z96.652 Presence of left artificial knee joint
CPT/HCPCS: 36415; 71045; 73560; 80053; 80202; 82565; 83036; 84520; 85027; 86850; 86900; 86901; 87015; 87070; 87075; 87205; 97110; 97116; 97163; 97166; 97530; 97535; C1713; C1776

== ENCOUNTER → 2023-11-02 07:07 | Outpatient (REF) | payer MEDICARE, SELFPAY ==
[2023-11-02 07:46] LABS: Vancomycin Trough 13.3 ug/ml (5-20)
[2023-11-02 13:54] LABS: Blood Urea Nitrogen 34 mg/dl (9-20); Calcium 9.8 mg/dl (8.4-10.2); Carbon Dioxide 24 mmol/L (22-30); Chloride 101 mmol/L (98-107); Glucose 96 mg/dl (70-99); Sodium 139 mmol/L (135-145); eGFR 47.23
[2023-11-02 14:12] LABS: Potassium 4.7 mmol/L (3.5-5.1)
== END ==
LOC: REG 07:07
PROVIDERS: ATTENDING PHYSICIAN Internal Medicine Infectious Disease; FAMILY PHYSICIAN Family Medicine; OTHER PHYSICIAN Internal Medicine Rheumatology; REFERRING PHYSICIAN Specialist
DX: T84.54XD Infection and inflammatory reaction due to internal left knee prosthesis, subsequent encounter (principal)
CPT/HCPCS: 36415; 80048; 80202

== ENCOUNTER → 2023-11-06 06:51 | Outpatient (REF) | payer MEDICARE, SELFPAY ==
[2023-11-06 09:16] LABS: % Basophils 0.5 % (0-2); % Eosinophils 2.5 % (0-6); % Immature Granulocytes 0.7 % (0-0.5); % Monocytes 9.9 % (1.7-9.3); % Neutrophils 76.4 % (42.2-75.2); Absolute Basophils 0.1 10^3/uL (0-0.2); Absolute Eosinophils 0.3 10^3/uL (0-0.7); Absolute Immature Granulocytes 0.1 10^3/uL (0-0.05); Absolute Lymphocytes 1.1 10^3/uL (1.2-3.4); Absolute Monocytes 1.1 10^3/uL (0.1-0.6); Absolute Neutrophils 8.6 10^3/uL (1.4-6.5); Hematocrit 46.9 % (39.0-52.0); Hemoglobin 15.7 g/dL (13.0-18.0); Mean Corp Hgb Conc. 33.5 g/dL (33.0-37.0); Mean Corpuscular Hgb 29.9 pg (27.0-31.0); Mean Corpuscular Volume 89.3 fL (80.0-94.0); Mean Platelet Volume 10.4 fL (7.4-10.4); Nucleated Red Blood Cells % 0 % (-); Platelet Count 225 10^3/uL (130-400); Red Blood Cell Count 5.25 10^6/uL (4.70-6.10); Red Cell Dist. Width 14.5 % (11.5-14.5); White Blood Cell Count 11.3 10^3/uL (4.8-10.8)
[2023-11-06 09:22] LABS: Erythrocyte Sed Rate 14 mm/hour (0-20)
[2023-11-06 10:00] LABS: Vancomycin Trough 8.8 ug/ml (5-20)
[2023-11-06 10:07] LABS: Blood Urea Nitrogen 37 mg/dl (9-20); Calcium 10.2 mg/dl (8.4-10.2); Carbon Dioxide 28 mmol/L (22-30); Chloride 100 mmol/L (98-107); Glucose 85 mg/dl (70-99); Sodium 142 mmol/L (135-145); eGFR 47.23
== END ==
LOC: REG 06:51
PROVIDERS: ATTENDING PHYSICIAN Internal Medicine Infectious Disease; FAMILY PHYSICIAN Family Medicine; OTHER PHYSICIAN Internal Medicine Rheumatology; REFERRING PHYSICIAN Specialist
DX: T84.54XD Infection and inflammatory reaction due to internal left knee prosthesis, subsequent encounter (principal)
CPT/HCPCS: 36415; 80048; 80202; 85025; 85652; 86140

== ENCOUNTER 2023-11-07 19:43 | Emergency (ER) | payer MEDICARE, SELFPAY ==
[2023-11-07 19:47] VITALS: BP 131/92
[2023-11-07 22:10] VITALS: BP 123/86
[2023-11-07 22:23] VITALS: BMI 28.3
--- NOTE | 2023-11-07 22:25 | EDRN ---
change yesterday and noted that it looks different. Pt has no pain or drainage from site. Minimal redness some dry crusting noted.
--- NOTE | 2023-11-07 22:41 | TRANSFER ---
CALLED TO EMR TO ASSESS 4FR SL R PICC INSERTED 10/10. DRSG C/D/I. NO CLAVE CAP PRESENT ON EXPOSED PICC LUMEN. PT AND STATES THERE HAS NEVER BEEN A CAP AND THIS HAS BEEN HOW THE PICC HAS LOOKED SINCE DISCHARGE FROM . PT WITH [facility] PICC DRSG 11/05. PICC FLUSHED WITH 10CC NSS AND EXCELLENT BR OBTAINED. PT IS CONCERNED AND TO EMR DUE TO LESS THAN DIME SIZE AREA OF PINKNESS AT PICC INSERTION SITE. NO DRAINAGE NO SWELLING OR TENDERNESS REPORTED. CLAVE CAP
APPLIED AFTER LUMEN VIGOUROUSLY CLEANSED WITH ALCOHOL. PCN AWARE OF INTERVENTION AND OUTCOME. AWAITING FOR PT TO BE SEEN BY PROVIDER.
--- NOTE | 2023-11-07 22:48 | ED.GENMED ---
History of Present Illness
General
Chief Complaint: Catheter/Tube Problem
Source: patient and spouse
Time Seen by Provider: 11/07/23 22:36
History of Present Illness
History of Present Illness:
70-year-old male who is getting IV vancomycin at home for an infected left knee replacement. Patient has a PICC line in place in the right upper extremity was concerned because he noticed little bit of redness at the site of the insertion. Patient
denies any symptoms otherwise. He called his care provider who advised him to come for evaluation. The patient states that he has been doing a little more activity and moving things around and has been moving his upper extremities. He wonders if
he could just irritating the area. No fevers
Past History
Past History
ED Past Medical History: GERD, HTN and Other (Rheumatoid arthritis, hypertension, septic left knee)
ED Past Surgical History: Orthopedic
Social History
Tobacco: Former smoker
Alcohol: Occasional
Drug: None
Personal:
Living: with family
Employment: Employed
Family History
Family History: Hypertension and CAD
Phy Exam
Physical Exam
Physical Exam:
CONSTITUTIONAL Vital signs reviewed, Patient alert and oriented to person, place and time. Well-appearing
HEAD atraumatic, normocephalic.
EYES eyelids normal to inspection, Extraocular muscles intact, Conjunctiva normal, Sclera normal.
NECK normal range of motion, Trachea midline, no jugular venous distention.
RESP no respiratory distress
BACK No obvious deformities
UPPER EXTREMITY Gross Range of motion normal, gross motor strength normal. PICC line in place to right upper extremity. Minor redness at the site of insertion. No drainage. No tenderness. No induration. No fluctuance.
LOWER EXTREMITY incision intact, left. No gross redness
NEURO Speech normal, No focal motor deficits include, Erika coma scale 15, Memory normal, Cranial Nerves intact to screening exam.
SKIN Skin warm, dry, and normal in color.
PSYCHIATRIC Patient oriented to person place and time, Normal affect.
Course
Vital Signs
Initial and Last Documented VS:
Initial Vital Signs
Temp Pulse Resp BP Pulse Ox
98.1 F 85 19 131/92 97
11/07/23 19:47 11/07/23 19:47 11/07/23 19:47 11/07/23 19:47 11/07/23 19:47
Last Documented Vital Signs
Temp Pulse Resp BP Pulse Ox
98.1 F 66 16 123/86 96
11/07/23 19:47 11/07/23 22:10 11/07/23 22:10 11/07/23 22:10 11/07/23 22:10
MDM/Problems Addressed
MDM/Problems Addressed:
PICC line evaluation
*Pulse Oximetry
Patient hypoxic: no
*Critical Care Note
Total Time (30-74mins, 75-104mins- exclusive of procedures): Not Applicable
Data Reviewed
Source: patient and spouse
Prescriptions/Medications Considered But Not Given:
Considered antibiotics patient already on vancomycin
Patient Management
Escalation/DeEscalation of care consider admission/obs:
Patient appears well. There is minor redness at the site of insertion. Question whether this is early infection versus irritation as he has been more active with his upper extremities. He is right-handed. PICC line was evaluated by IV team who
placed a new dressing. He in addition did not have a cap on it and the cath was placed. The patient will watch closely. Already on IV vancomycin and is followed closely by both ID and orthopedics
ED Attending Note
-
Portions of this chart may have been created with voice recognition software.� Occasional wrong word or��sound alike� substitutions may have occurred due to the inherent limitations of voice recognition software.
Discharge Plan
Departure
Patient Disposition: Home (Routine Discharge)
Date of Disposition: 11/07/23
Time of Disposition: 22:48
Patient with high blood pressure during this ER visit?: No
Discharge Problem:
PICC (peripherally inserted central catheter) in place
Instructions: Peripherally-Inserted Central Catheter
Prescriptions:
No Action
spironolactone 50 MG tablet
50 mg PO BID
amlodipine 2.5 mg Tablet
5 mg PO DAILY
prednisone
5 mg PO DAILY
Patient Comments:
recently taking 5 mg daily
Rx Instructions:
based on symptoms
carvedilol 12.5 mg Tablet
12.5 mg PO BID
mupirocin 2 % Ointment
1 applic TOPICAL BID
Rx Instructions:
started treatment monday10/06/23 and completed BID
loratadine 10 mg Tablet
10 mg PO DAILY
vitamin B complex Capsule
1 cap PO DAILY
magnesium 200 mg Tablet
240 mg PO DAILY
Enbrel 50 mg/mL (1 mL) Syringe
50 mg SC QWEEK
Tumeric
1,500 mg PO DAILY
Vancomycin [Vancocin] 1250 MG
0.9% Sodium Chloride 250 ml [Nss] 250 ML
183.33 mls/hr IV Q12H
Ordered By: Marybeth Santana PA-C
Last Taken: Unknown
Protocol: None
Protocol Text:
DOSING PER PHARMACY
Please contact pharmacy with any questions.
aspirin 325 mg tablet
325 mg PO DAILY Qty: 1 0RF
Rx Instructions:
Take with food
docusate sodium [Colace] 100 mg capsule
100 mg PO BID Qty: 1 0RF
celecoxib 200 mg capsule
200 mg PO DAILY Qty: 14 0RF
Rx Instructions:
*take with food
*space out 2 hours from aspirin
sennosides [Senokot] 8.6 mg tablet
17.2 mg PO BID Qty: 2 0RF
magnesium hydroxide [Milk of Magnesia] 400 mg/5 mL suspension
30 ml PO HS PRN (Reason: Constipation) Qty: 1 0RF
gabapentin 300 mg capsule
300 mg PO HS Qty: 10 0RF
oxycodone 5 mg tablet
5 mg PO Q6H PRN (Reason: 1 tab moderate pain, 2 tabs severe pain) Qty: 30 0RF
Rx Instructions:
Ongoing therapy
Saccharomyces boulardii [Florastor] 250 mg capsule
250 mg PO BID Qty: 1 0RF
acetaminophen [Tylenol] 325 mg capsule
650 mg PO QID Qty: 2 0RF
Referrals:
Tye Franz MD [Family Provider] -
Activity Restrictions/Additional Instructions:
Please follow-up with your doctors as planned. Return immediately for increased redness, fevers, pain or any other concerns.
Interventions
Interventions:
*Risk Screen - Suicide Last Done: 11/07/23 19:47
*General Assessment Last Done: 11/07/23 19:47
*Neglect/Abuse Screening Last Done: 11/07/23 19:47
ED- Fall Risk Assessment Last Done: 11/07/23 22:11
*ED COVID-19 Vaccine History Last Done: 11/07/23 19:47
Discharge Date and Time
Print Language: GUATEMALAN
== END 2023-11-07 23:00 | disposition home or self-care (01) ==
LOC: EMR 19:43
PROVIDERS: EMERGENCY PHYSICIAN Emergency Medicine; FAMILY PHYSICIAN Family Medicine
DX: Z45.2 Encounter for adjustment and management of vascular access device (principal); K21.9 Gastro-esophageal reflux disease without esophagitis; I10 Essential (primary) hypertension; M06.9 Rheumatoid arthritis, unspecified; Z82.49 Family history of ischemic heart disease and other diseases of the circulatory system; Z87.891 Personal history of nicotine dependence; Z96.652 Presence of left artificial knee joint
CPT/HCPCS: 99282

== ENCOUNTER → 2023-11-14 06:41 | Outpatient (REF) | payer MEDICARE, SELFPAY ==
[2023-11-14 07:23] LABS: % Basophils 0.4 % (0-2); % Immature Granulocytes 0.5 % (0-0.5); % Lymphocytes 7.2 % (20.5-51.1); % Monocytes 9.8 % (1.7-9.3); % Neutrophils 79.1 % (42.2-75.2); Absolute Basophils 0.1 10^3/uL (0-0.2); Absolute Eosinophils 0.5 10^3/uL (0-0.7); Absolute Immature Granulocytes 0.1 10^3/uL (0-0.05); Absolute Lymphocytes 1.2 10^3/uL (1.2-3.4); Absolute Monocytes 1.6 10^3/uL (0.1-0.6); Absolute Neutrophils 12.9 10^3/uL (1.4-6.5); Hematocrit 44.7 % (39.0-52.0); Hemoglobin 15.4 g/dL (13.0-18.0); Mean Corp Hgb Conc. 34.5 g/dL (33.0-37.0); Mean Corpuscular Volume 87.1 fL (80.0-94.0); Mean Platelet Volume 9.6 fL (7.4-10.4); Nucleated Red Blood Cells % 0 % (-); Platelet Count 224 10^3/uL (130-400); Red Blood Cell Count 5.13 10^6/uL (4.70-6.10); Red Cell Dist. Width 14.1 % (11.5-14.5); White Blood Cell Count 16.4 10^3/uL (4.8-10.8)
[2023-11-14 07:52] LABS: Vancomycin Trough 10.9 ug/ml (5-20)
[2023-11-14 07:56] LABS: Blood Urea Nitrogen 37 mg/dl (9-20); Calcium 10.1 mg/dl (8.4-10.2); Carbon Dioxide 25 mmol/L (22-30); Chloride 101 mmol/L (98-107); Glucose 109 mg/dl (70-99); Potassium 5.1 mmol/L (3.5-5.1); Sodium 139 mmol/L (135-145); eGFR 51.03
[2023-11-14 09:09] LABS: Erythrocyte Sed Rate 11 mm/hour (0-20)
== END ==
LOC: REG 06:41
PROVIDERS: ATTENDING PHYSICIAN Internal Medicine Infectious Disease; FAMILY PHYSICIAN Family Medicine; OTHER PHYSICIAN Internal Medicine Rheumatology; REFERRING PHYSICIAN Specialist
DX: T84.54XD Infection and inflammatory reaction due to internal left knee prosthesis, subsequent encounter (principal)
CPT/HCPCS: 36415; 80048; 80202; 85025; 85652; 86140

== ENCOUNTER → 2023-11-20 06:43 | Outpatient (REF) | payer MEDICARE, SELFPAY ==
[2023-11-20 07:40] LABS: % Basophils 0.4 % (0-2); % Eosinophils 3.6 % (0-6); % Lymphocytes 10.7 % (20.5-51.1); % Monocytes 11.2 % (1.7-9.3); % Neutrophils 73.1 % (42.2-75.2); Absolute Basophils 0.1 10^3/uL (0-0.2); Absolute Eosinophils 0.5 10^3/uL (0-0.7); Absolute Immature Granulocytes 0.1 10^3/uL (0-0.05); Absolute Lymphocytes 1.5 10^3/uL (1.2-3.4); Absolute Monocytes 1.6 10^3/uL (0.1-0.6); Absolute Neutrophils 10.2 10^3/uL (1.4-6.5); Hematocrit 46.1 % (39.0-52.0); Hemoglobin 15.5 g/dL (13.0-18.0); Mean Corp Hgb Conc. 33.6 g/dL (33.0-37.0); Mean Corpuscular Volume 89.2 fL (80.0-94.0); Mean Platelet Volume 10.1 fL (7.4-10.4); Nucleated Red Blood Cells % 0 % (-); Platelet Count 216 10^3/uL (130-400); Red Blood Cell Count 5.17 10^6/uL (4.70-6.10); Red Cell Dist. Width 14.1 % (11.5-14.5); White Blood Cell Count 13.9 10^3/uL (4.8-10.8)
[2023-11-20 08:40] LABS: Blood Urea Nitrogen 38 mg/dl (9-20); Calcium 9.9 mg/dl (8.4-10.2); Carbon Dioxide 23 mmol/L (22-30); Chloride 103 mmol/L (98-107); Glucose 89 mg/dl (70-99); Potassium 5.2 mmol/L (3.5-5.1); Sodium 141 mmol/L (135-145); eGFR 43.91
[2023-11-20 09:24] LABS: Erythrocyte Sed Rate 12 mm/hour (0-20)
== END ==
LOC: REG 06:43
PROVIDERS: ATTENDING PHYSICIAN Internal Medicine Infectious Disease; FAMILY PHYSICIAN Family Medicine; OTHER PHYSICIAN Specialist; REFERRING PHYSICIAN Internal Medicine Rheumatology
DX: T84.54XD Infection and inflammatory reaction due to internal left knee prosthesis, subsequent encounter (principal)
CPT/HCPCS: 36415; 80048; 85025; 85652; 86140

== ENCOUNTER → 2023-12-04 07:10 | Outpatient (REF) | payer MEDICARE, SELFPAY ==
[2023-12-04 08:15] LABS: % Basophils 0.4 % (0-2); % Eosinophils 2.4 % (0-6); % Immature Granulocytes 0.6 % (0-0.5); % Monocytes 10.7 % (1.7-9.3); % Neutrophils 71.9 % (42.2-75.2); Absolute Eosinophils 0.3 10^3/uL (0-0.7); Absolute Immature Granulocytes 0.1 10^3/uL (0-0.05); Absolute Lymphocytes 1.5 10^3/uL (1.2-3.4); Absolute Monocytes 1.2 10^3/uL (0.1-0.6); Absolute Neutrophils 7.8 10^3/uL (1.4-6.5); Hematocrit 43.1 % (39.0-52.0); Hemoglobin 14.5 g/dL (13.0-18.0); Mean Corp Hgb Conc. 33.6 g/dL (33.0-37.0); Mean Corpuscular Hgb 29.7 pg (27.0-31.0); Mean Corpuscular Volume 88.1 fL (80.0-94.0); Mean Platelet Volume 10.4 fL (7.4-10.4); Nucleated Red Blood Cells % 0 % (-); Platelet Count 222 10^3/uL (130-400); Red Blood Cell Count 4.89 10^6/uL (4.70-6.10); Red Cell Dist. Width 14.1 % (11.5-14.5); White Blood Cell Count 10.8 10^3/uL (4.8-10.8)
[2023-12-04 08:29] LABS: Erythrocyte Sed Rate 15 mm/hour (0-20)
[2023-12-04 09:58] LABS: ALT (SGPT) 31 U/L (0-50); AST (SGOT) 30 U/L (17-59); Albumin 4.8 g/dl (3.5-5.0); Alkaline Phosphatase 106 U/L (38-126); Blood Urea Nitrogen 36 mg/dl (9-20); Calcium 9.7 mg/dl (8.4-10.2); Carbon Dioxide 18 mmol/L (22-30); Chloride 104 mmol/L (98-107); Glucose 92 mg/dl (70-99); Potassium 5.2 mmol/L (3.5-5.1); Sodium 140 mmol/L (135-145); Total Bilirubin 0.7 mg/dl (0.2-1.3); Total Protein 7.3 g/dl (6.3-8.2); eGFR 43.91
== END ==
LOC: REG 07:10
PROVIDERS: ATTENDING PHYSICIAN Internal Medicine Rheumatology; FAMILY PHYSICIAN Family Medicine; OTHER PHYSICIAN Internal Medicine Infectious Disease; REFERRING PHYSICIAN Specialist
DX: M05.79 Rheumatoid arthritis with rheumatoid factor of multiple sites without organ or systems involvement (principal); M81.0 Age-related osteoporosis without current pathological fracture; Z51.81 Encounter for therapeutic drug level monitoring; R53.83 Other fatigue; T84.50XA Infection and inflammatory reaction due to unspecified internal joint prosthesis, initial encounter; M06.9 Rheumatoid arthritis, unspecified; T84.54XD Infection and inflammatory reaction due to internal left knee prosthesis, subsequent encounter
CPT/HCPCS: 36415; 80053; 85025; 85652; 86140

== ENCOUNTER 2023-12-11 10:27 | Inpatient (IN) | payer MEDICARE, SELFPAY ==
[2023-12-08 08:44] VITALS: BMI 26.7
[2023-12-11] VITALS (11 sets, daily range): BP systolic 104–129; BP diastolic 72–87; BMI 26.7
[2023-12-11] MEDS: TYLENOL 650 MG PO ×3 (11:44→20:42)
[2023-12-11] MEDS: CELEBREX 200 MG PO (11:44)
[2023-12-11] MEDS: NORMOSOL-R/PLASMALYTE-A 1000 IV (11:45)
--- NOTE | 2023-12-11 14:33 | W.PN.UPDATE ---
Update Note
Progress Note Update
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
- s/p L TKA, 09/2019, and 1st stage revision of L TKA, 10/09/2023, w/ Dr Schulte
- s/p empiric IV Vanco x6 weeks -> pre-op inflammatory markers WNL
DVT prophylaxis - ASA, b/l venous foot pumps
HTN - + parameters - monitor BP
CKD stage 3 - minimize nephrotoxins
RA w/ chronic steroid use - would benefit from prophylactic Cefadroxil upon d/c
Sinus bradycardia
Ascending aortic aneurysm
Cervical DDD
Osteopenia
Mild hyperkalemia
[2023-12-11] MEDS: ROXICODONE 5 MG PO (16:53)
[2023-12-11] MEDS: NSS 1000 IV (17:25)
--- NOTE | 2023-12-11 18:12 | PTCARENOTE ---
pt admitted to room 9 from PACU at 730. pt arrived awake and alert via bed. pt oriented to room, environment and plan of care with verbalized understanding. admission database and assessment completed as documented. denies pain. Left knee
surgical dressing with scant shadowing noted, ice pack in use. will monitor.
[2023-12-11] MEDS: ASPIRIN 325 MG PO (18:17)
[2023-12-11] MEDS: BACTROBAN 2% OINTMENT 1 APPLIC NASAL (20:42)
[2023-12-11] MEDS: COLACE 100 MG PO (20:43)
[2023-12-11] MEDS: COREG 12.5 MG PO (20:43)
[2023-12-11] MEDS: SENOKOT 17.2 MG PO (20:43)
[2023-12-11] MEDS: NEURONTIN 300 MG PO (22:54)
[2023-12-11] MEDS: ROXICODONE 10 MG PO (22:54)
[2023-12-11] MEDS: ANCEF 5 IV (22:54)
[2023-12-11] MEDS: ZYRTEC 10 MG PO (22:55)
[2023-12-12] MEDS: TYLENOL 650 MG PO ×4 (00:11→12:44)
[2023-12-12 02:57] VITALS: BP 109/76
[2023-12-12] MEDS: ANCEF 5 IV (06:06)
[2023-12-12] MEDS: ROXICODONE 5 MG PO (06:10)
[2023-12-12 07:48] VITALS: BP 129/80
[2023-12-12] MEDS: SENOKOT 17.2 MG PO (08:19)
[2023-12-12] MEDS: ASPIRIN 325 MG PO (08:19)
[2023-12-12] MEDS: DELTASONE 5 MG PO (08:19)
[2023-12-12] MEDS: COLACE 100 MG PO (08:19)
[2023-12-12] MEDS: BACTROBAN 2% OINTMENT 1 APPLIC NASAL (08:20)
[2023-12-12] MEDS: COREG 12.5 MG PO (08:20)
[2023-12-12 11:17] VITALS: BP 117/81; PULSE 79; O2SAT 96
--- NOTE | 2023-12-12 11:31 | W.PN.ORTHO ---
Today's Communication / Plan
-
Await OT recs. Pt did well w/ PT this AM.
Await abx recs from ID.
D/c later today if remaining medically stable.
Assessment
.
Distal Motor Intact: Yes
Dressing:
Scant areas of old incisional bleeding.
Assessment:
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
- s/p L TKA, 09/2019, and 1st stage revision of L TKA, 10/09/2023, w/ Dr Schulte
- s/p empiric IV Vanco x6 weeks -> pre-op inflammatory markers WNL
DVT prophylaxis - ASA, b/l venous foot pumps
HTN - + parameters - BPs overall stable
CKD stage 3 - minimize nephrotoxins
RA w/ chronic steroid use - would likely benefit from prophylactic abx upon d/c; will look for ID recs
Sinus bradycardia
Ascending aortic aneurysm
Cervical DDD
Osteopenia
Mild hyperkalemia
Plan
.
Surgery / Date: 2nd stage revision of L TKA w/ Dr Schulte 12/11/23
DVT Prophylaxis: Aspirin
Activity:
Out of bed.
PT/OT
Discharge Plan: Home w/ Outpatient PT
Subjective
.
.:
Patient resting comfortably in his chair.
L knee pain minimal w/ his current pain meds.
Denies any new significant complaints.
Eager for potential d/c today.
Vital Signs and Labs
.
Vital Signs and Labs:
Lab Results
12/08/23 08:42
12/08/23 08:42
Temp Pulse Resp BP Pulse Ox
97.5 F 65 18 129/80 97
12/12/23 07:48 12/12/23 08:20 12/12/23 07:48 12/12/23 08:20 12/12/23 07:48
Non-invasive Hgb result: 14.4
Physical Exam
-
HEENT: No pallor, cyanosis, or jaundice. Throat clear.
NECK: Supple. No JVD.
RESPIRATORY: Lungs clear to auscultation.
CVS: S1, S2 normal. RRR.�
ABDOMEN: Soft, non-tender. No distension.
EXTREMITIES: Expected post-surgical L knee edema. No calf pain with palpation/dorsiflexion. Calves soft.
BACKGROUND INVESTIGATOR: AOx3. No focal deficits. sludge mill operator grossly intact
[2023-12-12 11:33] VITALS: BP 118/75
[2023-12-12 11:55] VITALS: BP 118/75
[2023-12-12 11:57] VITALS: BP 118/75; PULSE 67; O2SAT 94
--- NOTE | 2023-12-12 12:21 | CM ---
Reviewed the chart notes and spoke with the patient and his spouse at the bedside. The patient resides with his spouse in a two story home with three steps to enter. The patient reports DME in home as: walking stick, rolling walker, and a comfort
height toilet. The patient has had [facility] and [facility] in the past. The patient confirmed his pharmacy of choice is the [facility]. The patient has an outpatient therapy session scheduled for tomorrow and plans on
therapy three times a week. Patient's spouse to provide transportation home. CM continues to be available to patient/family and is monitoring medical plan for needs at discharge.
Plan: Discharge to home with outpatient therapy needs.
--- NOTE | 2023-12-12 14:30 | CON.ID ---
Consultation
-
Date/Time Consultation Requested: 12/12/2023 1114
Date/Time Consultation Performed: 12/12/2023 1400
Requesting Provider: Vandana Malone PA-C
Performing Provider: Dr. Méndez
Reason for Consultation: Hx left knee PJI
Chief Complaint / Past History
History of Present Illness
Lio Infante is a 68-year-old man being evaluated at request of Dr. Schulte regarding a history of left knee PJI. History is obtained from chart review, along with patient interview.
Patient is known to the Infectious Diseases service, having been seen on 10/08 for the same. In review, the patient underwent a left total knee replacement approximately 4 years, and reports in the interim he had been doing well. More recently, he
notes that he had been doing some carpentry in his basement and also for a family member. Approximate 3 weeks ago he began to develop some tenderness of the left knee which progressed to pain. He had made an appointment with Orthopedics and the
knee effusion was tapped, with reportedly negative results. Unfortunately, the knee continues to be painful, and the patient underwent Synovasure testing and found to be positive, although cultures were negative. He was also found to have an
increased CRP. He underwent full explantation with spacer implantation. He subsequently was discharged to home, and completed a 6-week course of IV vancomycin. Thereafter, he was followed off of antibiotics for several weeks and underwent a
second stage procedure yesterday.
Infectious Diseases asked to comment upon any necessity for further antimicrobial therapy.
Past History
Additional Past Medical History:
Rheumatoid arthritis
AAA (being monitored)
HTN
Additional Past Surgical History:
Left knee replacement
Left femur ORIF
Left rotator cuff surgery
Allergy History:
No Known Allergies Allergy (Verified 12/11/23 11:30)
Medications Reviewed: Yes
Current Antibiotics:
Cefazolin intraoperatively
Social History
Tobacco: Non-Smoker
Alcohol: None
Drug: None
Personal:
Living: With Family
Employment: Retired
Family History
Family History: Not Pertinent
Review of Systems
Vital Signs
Temp Pulse Resp BP Pulse Ox
97.9 F 67 19 118/75 95
12/12/23 11:33 12/12/23 11:33 12/12/23 11:33 12/12/23 11:33 12/12/23 11:33
Physical Exam
Physical Exam
Constitutional: No Acute Distress, Comfortable and Non-toxic
Head: Normocephalic
Eyes: Pupils Equal, Pupils Round, No Conjunctival Hemorrhage and Sclera Anicteric
Oral: No Thrush and No Ulcers
Cardiovascular: Regular Rate and S1/S2; Negative S3/S4 or Murmur
Pulmonary: Clear; Negative Wheezes, Rales or Rhonchi
Gastrointestinal: Soft, Non Tender, Non Distended and Normal Bowel Sounds
Extremities: Edema; Negative Cyanosis or Erythema
Musculoskeletal: Other (Left knee with bandage in place)
Skin: Warm and Dry
Neurological: Awake and Alert
Psychological: Calm
Lab / Diagnostic Study Results
12/08/23 08:42
12/08/23 08:42
Microbiology Results
Micro:
12/08/23 08:39 MRSA Screen - Final
Nose No Methicillin Resistant Staphylococcus aureus isolated.
Assessment / Plan
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
- s/p second stage reimplantation.
Rheumatoid arthritis
AAA (being monitored)
HTN
Recommendations:
The patient has successfully completed a 6-week course of IV antibiotics in empiric treatment of suspected left knee PJI.
Currently, he is status post second stage reimplantation.
Given the lack of prior cultures to guide antimicrobial therapy, and the fact that he successfully completed a 6-week course of antibiotics and was doing well off of antimicrobial therapy before his reimplantation, he most likely does not need
further antibiotics at this time.
Patient has been counseled to follow-up for redevelopment of any ongoing pain. Will be happy to see in the outpatient setting if necessary.
Care Review
Plan reviewed with: Other Provider (Jem STARKEY)
--- NOTE | 2023-12-12 14:52 | W.DS.TRANS ---
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
-
Discharge Instructions:
Sleep Apnea Risk Intermediate
Discharge Diagnosis/Procedures Septic prosthetic left knee joint s/p 2nd
stage revision of left TKA w/ Dr Schulte 12/11/23
Diet Regular
Activity As tolerated,With Walker
Driving Restrictions Not until seen by your Dr
Bathing Restrictions OK to Shower
Other Services PT
Wound Care Dressing to be removed 1 week post-surgery.
Instructions:
Stand-Alone Forms: Total Hip/Knee Replacement D/C
Changes to Home Medications: Yes
Discharge Medications:
DC Medications w/original date entered in [facility] [employer]
prednisone 5 mg tablet 5 mg PO DAILY Anti-Inflammatory ##0 02/11/22
carvedilol 12.5 mg tablet 12.5 mg PO BID Blood Pressure 10/06/23
magnesium 200 mg tablet 240 mg PO HS Supplement 10/06/23
Bifidobacterium infantis 4 mg capsule (Align) 4 mg PO DAILY Gastrointestinal Issue 12/07/23
cetirizine 10 mg tablet (Zyrtec) 10 mg PO HS Allergies 12/07/23
mupirocin 2 % ointment topical kit 1 applic topical BID 12/11/23
acetaminophen 500 mg tablet (Tylenol Extra Strength) 1,000 mg (2 x 500 mg) PO Q6H #60 tabs 12/12/23
amlodipine 5 mg tablet 5 mg PO DAILY Blood Pressure #0 tabs 12/12/23
aspirin 325 mg tablet 325 mg PO DAILY #30 tabs 12/12/23
docusate sodium 100 mg capsule 100 mg PO BID #30 caps 12/12/23
gabapentin 300 mg capsule 300 mg PO HS neuropathic pain #10 caps 12/12/23
ondansetron HCl 4 mg tablet 4 mg PO Q6H PRN nausea and vomiting #30 tabs 12/12/23
oxycodone 5 mg tablet 5 - 10 mg (1 - 2 x 5 mg) PO Q6H PRN moderate-severe pain #30 tabs 12/12/23
sennosides 8.6 mg tablet (Senna Laxative) 17.2 mg (2 x 8.6 mg) PO BID #30 tabs 12/12/23
spironolactone 50 mg tablet 50 mg PO DAILY Fluid Retention/Swelling #1 tab 12/12/23
Home Medication Changes
acetaminophen 500 mg tablet (Tylenol Extra Strength) 1,000 mg (2 x 500 mg) PO Q6H #60 tabs 12/12/23
aspirin 325 mg tablet 325 mg PO DAILY #30 tabs 12/12/23
docusate sodium 100 mg capsule 100 mg PO BID #30 caps 12/12/23
gabapentin 300 mg capsule 300 mg PO HS neuropathic pain #10 caps 12/12/23
ondansetron HCl 4 mg tablet 4 mg PO Q6H PRN nausea and vomiting #30 tabs 12/12/23
oxycodone 5 mg tablet 5 - 10 mg (1 - 2 x 5 mg) PO Q6H PRN moderate-severe pain #30 tabs 12/12/23
sennosides 8.6 mg tablet (Senna Laxative) 17.2 mg (2 x 8.6 mg) PO BID #30 tabs 12/12/23
Pending Results: No
== END 2023-12-12 15:20 | disposition home or self-care (01) | DRG 467 ==
LOC: 2 SOUTH 10:27
PROVIDERS: ADMITTING PHYSICIAN Specialist; CONSULT PHYSICIAN Internal Medicine Infectious Disease; FAMILY PHYSICIAN Family Medicine
PROC: 0SPD0JZ Removal of Synthetic Substitute from Left Knee Joint, Open Approach (ICD-10-PCS; 2023-12-11)
PROC: 0SRD0J9 Replacement of Left Knee Joint with Synthetic Substitute, Cemented, Open Approach (ICD-10-PCS; 2023-12-11)
DX: T84.54XA Infection and inflammatory reaction due to internal left knee prosthesis, initial encounter (principal); M86.152 Other acute osteomyelitis, left femur; Y83.1 Surgical operation with implant of artificial internal device as the cause of abnormal reaction of the patient, or of later complication, without mention of misadventure at the time of the procedure; N18.30 Chronic kidney disease, stage 3 unspecified; I12.9 Hypertensive chronic kidney disease with stage 1 through stage 4 chronic kidney disease, or unspecified chronic kidney disease; Z79.52 Long term (current) use of systemic steroids; M06.9 Rheumatoid arthritis, unspecified
CPT/HCPCS: 36415; 73560; 86850; 86900; 86901; 87070; 97116; 97162; 97166; C1713; C1762; C1776

== ENCOUNTER 2024-01-10 09:16 | Outpatient (RCR) | payer MEDICARE, SELFPAY | END 2024-01-10 23:59 | disposition home or self-care (01) | LOC: RPT 09:16 | PROVIDERS: ATTENDING PHYSICIAN Physician Assistant Surgical; FAMILY PHYSICIAN Family Medicine | DX: Z47.1 Aftercare following joint replacement surgery (principal); T84.54XD Infection and inflammatory reaction due to internal left knee prosthesis, subsequent encounter; X58.XXXD Exposure to other specified factors, subsequent encounter; Z96.652 Presence of left artificial knee joint; Z73.6 Limitation of activities due to disability | CPT/HCPCS: 97014; 97110; 97140; 97162; 97530 ==

== ENCOUNTER 2024-02-09 14:51 | Outpatient (RCR) | payer MEDICARE, SELFPAY | END 2024-02-09 23:59 | disposition home or self-care (01) | LOC: RPT 14:51 | PROVIDERS: ATTENDING PHYSICIAN Physician Assistant Surgical; FAMILY PHYSICIAN Family Medicine | DX: Z47.1 Aftercare following joint replacement surgery (principal); Z73.6 Limitation of activities due to disability; R26.2 Difficulty in walking, not elsewhere classified; M62.81 Muscle weakness (generalized); M25.562 Pain in left knee; Z96.652 Presence of left artificial knee joint | CPT/HCPCS: 97110; 97530 ==

== ENCOUNTER → 2024-02-26 08:23 | Outpatient (REF) | payer MEDICARE, SELFPAY ==
[2024-02-26 09:29] LABS: Urine Albumin Negative (Neg - Trace); Urine Bilirubin Negative (Negative); Urine Character Clear (Clear); Urine Color Yellow; Urine Glucose Negative (Negative); Urine Ketone Negative (Negative); Urine Leukocyte Negative (Negative); Urine Nitrite Negative (Negative); Urine Occult Blood Negative (Negative); Urine Urobilinogen Negative (Neg - 1+)
[2024-02-26 09:35] LABS: % Basophils 0.3 % (0-2); % Eosinophils 1.4 % (0-6); % Immature Granulocytes 0.7 % (0-0.5); % Lymphocytes 11.8 % (20.5-51.1); % Monocytes 8.7 % (1.7-9.3); % Neutrophils 77.1 % (42.2-75.2); Absolute Eosinophils 0.2 10^3/uL (0-0.7); Absolute Immature Granulocytes 0.1 10^3/uL (0-0.05); Absolute Lymphocytes 1.4 10^3/uL (1.2-3.4); Hematocrit 42.1 % (39.0-52.0); Hemoglobin 13.7 g/dL (13.0-18.0); Mean Corp Hgb Conc. 32.5 g/dL (33.0-37.0); Mean Corpuscular Hgb 30.4 pg (27.0-31.0); Mean Corpuscular Volume 93.6 fL (80.0-94.0); Mean Platelet Volume 10.6 fL (7.4-10.4); Nucleated Red Blood Cells % 0 % (-); Platelet Count 219 10^3/uL (130-400); Red Cell Dist. Width 13.4 % (11.5-14.5); White Blood Cell Count 11.7 10^3/uL (4.8-10.8)
[2024-02-26 10:21] LABS: Blood Urea Nitrogen 26 mg/dl (9-20); Calcium 9.6 mg/dl (8.4-10.2); Carbon Dioxide 27 mmol/L (22-30); Chloride 103 mmol/L (98-107); Glucose 102 mg/dl (70-99); Potassium 4.7 mmol/L (3.5-5.1); Sodium 140 mmol/L (135-145); eGFR > 60.00
== END ==
LOC: REG 08:23
PROVIDERS: ATTENDING PHYSICIAN Family Medicine
DX: D72.829 Elevated white blood cell count, unspecified (principal); N17.9 Acute kidney failure, unspecified
CPT/HCPCS: 36415; 80048; 81003; 85025

== ENCOUNTER → 2024-03-20 07:49 | Outpatient (REF) | payer MEDICARE, SELFPAY ==
[2024-03-20 08:35] LABS: % Basophils 0.4 % (0-2); % Eosinophils 1.6 % (0-6); % Immature Granulocytes 0.7 % (0-0.5); % Lymphocytes 11.9 % (20.5-51.1); % Monocytes 7.8 % (1.7-9.3); % Neutrophils 77.6 % (42.2-75.2); Absolute Eosinophils 0.2 10^3/uL (0-0.7); Absolute Immature Granulocytes 0.1 10^3/uL (0-0.05); Absolute Lymphocytes 1.3 10^3/uL (1.2-3.4); Absolute Monocytes 0.9 10^3/uL (0.1-0.6); Absolute Neutrophils 8.7 10^3/uL (1.4-6.5); Hemoglobin 13.9 g/dL (13.0-18.0); Mean Corp Hgb Conc. 33.1 g/dL (33.0-37.0); Mean Corpuscular Hgb 30.3 pg (27.0-31.0); Mean Corpuscular Volume 91.7 fL (80.0-94.0); Mean Platelet Volume 9.9 fL (7.4-10.4); Nucleated Red Blood Cells % 0 % (-); Platelet Count 226 10^3/uL (130-400); Red Blood Cell Count 4.58 10^6/uL (4.70-6.10); Red Cell Dist. Width 12.5 % (11.5-14.5); White Blood Cell Count 11.2 10^3/uL (4.8-10.8)
[2024-03-20 09:04] LABS: ALT (SGPT) 23 U/L (0-50); AST (SGOT) 28 U/L (17-59); Albumin 4.3 g/dl (3.5-5.0); Alkaline Phosphatase 101 U/L (38-126); Blood Urea Nitrogen 31 mg/dl (9-20); Calcium 9.2 mg/dl (8.4-10.2); Carbon Dioxide 26 mmol/L (22-30); Chloride 103 mmol/L (98-107); Glucose 104 mg/dl (70-99); Potassium 4.7 mmol/L (3.5-5.1); Sodium 139 mmol/L (135-145); Total Bilirubin 0.7 mg/dl (0.2-1.3); Total Protein 7.4 g/dl (6.3-8.2); eGFR 55.09
[2024-03-20 10:15] LABS: Erythrocyte Sed Rate 25 mm/hour (0-20)
== END ==
LOC: REG 07:49
PROVIDERS: ATTENDING PHYSICIAN Internal Medicine Rheumatology; FAMILY PHYSICIAN Family Medicine; OTHER PHYSICIAN Specialist
DX: M05.79 Rheumatoid arthritis with rheumatoid factor of multiple sites without organ or systems involvement (principal); M81.0 Age-related osteoporosis without current pathological fracture; Z51.81 Encounter for therapeutic drug level monitoring
CPT/HCPCS: 36415; 80053; 85025; 85652; 86140

== ENCOUNTER → 2024-03-26 08:20 | Outpatient (REF) | payer MEDICARE, SELFPAY ==
[2024-03-26 10:15] LABS: Hepatitis B Core Ab, IgM Negative (Negative)
[2024-03-26 10:32] LABS: Hepatitis B Core Ab, Total Negative (Negative); Hepatitis B Surface Antibody Negative; Hepatitis C Antibody Negative (Negative)
[2024-03-26 12:31] LABS: HIV Combo Negative (Negative)
[2024-03-28 14:41] LABS: Quantiferon Mitogen minus NIL 3.43 IU/mL; Quantiferon TB Gold Plus Negative (Negative)
== END ==
LOC: REG 08:20
PROVIDERS: ATTENDING PHYSICIAN Internal Medicine Rheumatology; FAMILY PHYSICIAN Family Medicine
DX: M81.0 Age-related osteoporosis without current pathological fracture (principal); Z51.81 Encounter for therapeutic drug level monitoring
CPT/HCPCS: 36415; 86480; 86704; 86705; 86706; 86803; 87389

== ENCOUNTER → 2024-05-08 07:03 | Outpatient (REF) | payer MEDICARE, SELFPAY ==
[2024-05-08 09:06] LABS: ALT (SGPT) 28 U/L (0-50); AST (SGOT) 30 U/L (17-59); Albumin 4.8 g/dl (3.5-5.0); Alkaline Phosphatase 100 U/L (38-126); Blood Urea Nitrogen 27 mg/dl (9-20); Calcium 9.9 mg/dl (8.4-10.2); Carbon Dioxide 27 mmol/L (22-30); Chloride 102 mmol/L (98-107); Glucose 103 mg/dl (70-99); HDL Cholesterol 38 mg/dl; LDL Cholesterol, Calculated 98 mg/dl; Potassium 4.8 mmol/L (3.5-5.1); Sodium 140 mmol/L (135-145); Total Bilirubin 1.1 mg/dl (0.2-1.3); Total Cholesterol 186 mg/dl (50-199); Total Protein 7.7 g/dl (6.3-8.2); Triglyceride 252 mg/dl (10-149); Very Low Density Lipoprotein 50 mg/dl (0-30); eGFR > 60.00
== END ==
LOC: REG 07:03
PROVIDERS: ATTENDING PHYSICIAN Family Medicine; OTHER PHYSICIAN Internal Medicine Rheumatology; OTHER PHYSICIAN Specialist
DX: I10 Essential (primary) hypertension (principal); R73.02 Impaired glucose tolerance (oral)
CPT/HCPCS: 36415; 80053; 80061

== ENCOUNTER → 2024-05-14 08:17 | Outpatient (REF) | payer MEDICARE, SELFPAY | LOC: HWRCS 08:17 | PROVIDERS: ATTENDING PHYSICIAN Internal Medicine Cardiovascular Disease; FAMILY PHYSICIAN Family Medicine | DX: I71.21 Aneurysm of the ascending aorta, without rupture (principal) | CPT/HCPCS: 93306 ==

== ENCOUNTER → 2024-07-17 12:22 | Outpatient (REF) | payer MEDICARE, SELFPAY | LOC: HWRAD 12:22 | PROVIDERS: ATTENDING PHYSICIAN Physician Assistant Medical; FAMILY PHYSICIAN Family Medicine | DX: R05.1 Acute cough (principal) | CPT/HCPCS: 71046 ==

== ENCOUNTER → 2024-09-10 07:01 | Outpatient (REF) | payer MEDICARE, SELFPAY ==
[2024-09-10 07:57] LABS: Urine Character Clear (Clear)
[2024-09-10 08:30] LABS: ALT (SGPT) 24 U/L (0-50); AST (SGOT) 24 U/L (17-59); Albumin 4.8 g/dl (3.5-5.0); Alkaline Phosphatase 75 U/L (38-126); Blood Urea Nitrogen 23 mg/dl (9-20); Calcium 9.1 mg/dl (8.4-10.2); Carbon Dioxide 23 mmol/L (22-30); Chloride 109 mmol/L (98-107); Glucose 93 mg/dl (70-99); HDL Cholesterol 34 mg/dl; LDL Cholesterol, Calculated 94 mg/dl; Potassium 4.3 mmol/L (3.5-5.1); Sodium 140 mmol/L (135-145); Total Protein 7.6 g/dl (6.3-8.2); Very Low Density Lipoprotein 51 mg/dl (0-30); eGFR > 60.00
[2024-09-10 08:57] LABS: PSA, Total - Screen 2.29 ng/ml (0.0-4.0)
== END ==
LOC: REG 07:01
PROVIDERS: ATTENDING PHYSICIAN Family Medicine
DX: R73.02 Impaired glucose tolerance (oral) (principal); N17.9 Acute kidney failure, unspecified; I10 Essential (primary) hypertension; E78.5 Hyperlipidemia, unspecified; Z12.5 Encounter for screening for malignant neoplasm of prostate
CPT/HCPCS: 36415; 80053; 80061; 81003; G0103

== ENCOUNTER → 2024-10-15 07:07 | Outpatient (REF) | payer MEDICARE, SELFPAY | LOC: RAD 07:07 | PROVIDERS: ATTENDING PHYSICIAN Internal Medicine Cardiovascular Disease; FAMILY PHYSICIAN Family Medicine | DX: I71.21 Aneurysm of the ascending aorta, without rupture (principal) | CPT/HCPCS: 71275; Q9967 ==

== ENCOUNTER → 2024-11-04 07:40 | Outpatient (REF) | payer MEDICARE, SELFPAY ==
[2024-11-04 08:39] LABS: Hematocrit 45.6 % (39.0-52.0); Hemoglobin 15.3 g/dL (13.0-18.0); Mean Corp Hgb Conc. 33.6 g/dL (33.0-37.0); Mean Corpuscular Volume 93.4 fL (80.0-94.0); Nucleated Red Blood Cells % 0 % (-); Platelet Count 168 10^3/uL (130-400); Red Cell Dist. Width 13.4 % (11.5-14.5)
[2024-11-04 09:13] LABS: C-Reactive Protein 8.50 mg/L (0.0-10.00)
[2024-11-04 09:23] LABS: ALT (SGPT) 24 U/L (0-50); AST (SGOT) 22 U/L (17-59); Albumin 4.8 g/dl (3.5-5.0); Alkaline Phosphatase 76 U/L (38-126); Blood Urea Nitrogen 25 mg/dl (9-20); Calcium 9.5 mg/dl (8.4-10.2); Carbon Dioxide 25 mmol/L (22-30); Chloride 107 mmol/L (98-107); Glucose 85 mg/dl (70-99); Potassium 4.6 mmol/L (3.5-5.1); Sodium 141 mmol/L (135-145); Total Protein 7.6 g/dl (6.3-8.2); eGFR > 60.00
== END ==
LOC: REG 07:40
PROVIDERS: ATTENDING PHYSICIAN Internal Medicine Rheumatology; FAMILY PHYSICIAN Family Medicine
DX: M05.79 Rheumatoid arthritis with rheumatoid factor of multiple sites without organ or systems involvement (principal); M81.0 Age-related osteoporosis without current pathological fracture; Z51.81 Encounter for therapeutic drug level monitoring
CPT/HCPCS: 36415; 80053; 85025; 85652; 86140

== ENCOUNTER → 2024-12-26 14:04 | Outpatient (REF) | payer MEDICARE, SELFPAY | LOC: RAD 14:04 | PROVIDERS: ATTENDING PHYSICIAN Internal Medicine Rheumatology; FAMILY PHYSICIAN Family Medicine | DX: M81.0 Age-related osteoporosis without current pathological fracture (principal); Z13.820 Encounter for screening for osteoporosis | CPT/HCPCS: 77080 ==

== ENCOUNTER → 2025-02-24 07:19 | Outpatient (REF) | payer MEDICARE, SELFPAY ==
[2025-02-24 08:51] LABS: Hematocrit 47.1 % (39.0-52.0); Hemoglobin 15.4 g/dL (13.0-18.0); Mean Corp Hgb Conc. 32.7 g/dL (33.0-37.0); Mean Corpuscular Volume 91.3 fL (80.0-94.0); Nucleated Red Blood Cells % 0 % (-); Platelet Count 188 10^3/uL (130-400); Red Cell Dist. Width 14.4 % (11.5-14.5)
[2025-02-24 09:28] LABS: C-Reactive Protein 24.70 mg/L (0.0-10.00)
[2025-02-24 09:44] LABS: ALT (SGPT) 33 U/L (0-50); AST (SGOT) 29 U/L (17-59); Albumin 4.7 g/dl (3.5-5.0); Alkaline Phosphatase 85 U/L (38-126); Blood Urea Nitrogen 29 mg/dl (9-20); Calcium 9.5 mg/dl (8.4-10.2); Carbon Dioxide 24 mmol/L (22-30); Chloride 103 mmol/L (98-107); Glucose 95 mg/dl (70-99); HDL Cholesterol 41 mg/dl; LDL Cholesterol, Calculated 101 mg/dl; Potassium 4.5 mmol/L (3.5-5.1); Sodium 137 mmol/L (135-145); Total Protein 7.8 g/dl (6.3-8.2); Very Low Density Lipoprotein 36 mg/dl (0-30); Vitamin D, 25-OH*** 31.0 ng/mL (30-80); eGFR > 60.00
== END ==
LOC: REG 07:19
PROVIDERS: ATTENDING PHYSICIAN Internal Medicine Rheumatology; FAMILY PHYSICIAN Family Medicine
DX: M05.79 Rheumatoid arthritis with rheumatoid factor of multiple sites without organ or systems involvement (principal); M81.0 Age-related osteoporosis without current pathological fracture; Z51.81 Encounter for therapeutic drug level monitoring; I10 Essential (primary) hypertension
CPT/HCPCS: 36415; 80053; 80061; 82306; 85025; 85652; 86140